=== PATIENT | female | born 1955 | race Hispanic/Latino ===

== ENCOUNTER → 2018-08-28 | Outpatient (CLI) | payer OTHER, MEDICARE ==
[~2018-08-28] MED LIST: BACL10TA PO; ESCI10TA54 PO; PANT40TA25 PO; QUET50TA55 PO
== END | disposition home or self-care (01) ==
LOC: RAH 07:59
PROVIDERS: ATTEND Family Medicine
DX: G44.59 Other complicated headache syndrome (principal); G43.909 Migraine, unspecified, not intractable, without status migrainosus; R42 Dizziness and giddiness
CPT/HCPCS: 70450

== ENCOUNTER → 2018-12-18 | Outpatient (CLI) | payer OTHER, MEDICARE | END | disposition home or self-care (01) | LOC: OIH 09:27 | PROVIDERS: ATTEND Family Medicine | DX: M25.562 Pain in left knee (principal) | CPT/HCPCS: 73562 ==

== ENCOUNTER → 2018-12-22 | Outpatient (CLI) | payer OTHER, MEDICARE | END | disposition home or self-care (01) | LOC: RAH 08:28 | PROVIDERS: ATTEND Family Medicine | DX: R10.2 Pelvic and perineal pain (principal); R10.30 Lower abdominal pain, unspecified; Z90.710 Acquired absence of both cervix and uterus | CPT/HCPCS: 76700; 76856 ==

== ENCOUNTER → 2019-03-07 | Outpatient (CLI) | payer OTHER, MEDICARE | END | disposition home or self-care (01) | LOC: RAH 09:20 | PROVIDERS: ATTEND Family Medicine | DX: Z12.31 Encounter for screening mammogram for malignant neoplasm of breast (principal) | CPT/HCPCS: 77067 ==

== ENCOUNTER → 2020-05-12 | Outpatient (CLI) | payer OTHER, MEDICARE | END | disposition home or self-care (01) | LOC: SHCH 08:30 | PROVIDERS: ATTEND Internal Medicine Cardiovascular Disease | DX: R06.02 Shortness of breath (principal) | CPT/HCPCS: 93306; 93356 ==

== ENCOUNTER → 2021-05-06 | Outpatient (CLI) | payer OTHER, MEDICARE ==
[~2021-05-06] MED LIST changes: +ESCI-8 PO; -ESCI10TA54 PO; -PANT40TA25 PO; +PANT40TA54 PO; +QUET50TA24 PO; -QUET50TA55 PO
== END | disposition home or self-care (01) ==
LOC: RAH 10:55
PROVIDERS: ATTEND Family Medicine
DX: Z12.31 Encounter for screening mammogram for malignant neoplasm of breast (principal)
CPT/HCPCS: 77067

== ENCOUNTER → 2023-06-30 | Outpatient (CLI) | payer OTHER, MEDICARE | END | disposition home or self-care (01) | LOC: RAH 09:35 | PROVIDERS: ATTEND Family Medicine | DX: Z12.31 Encounter for screening mammogram for malignant neoplasm of breast (principal) | CPT/HCPCS: 77067 ==

== ENCOUNTER 2023-07-05 09:04 | Emergency (ER) | payer OTHER, MEDICARE ==
[~2023-07-05] VITALS: Ht 160 cm; Wt 120.7 kg
[2023-07-05 09:37] LABS: BASOPHILS # (AUTO) 0.01 K/uL (0.00-0.20); BASOPHILS % (AUTO) 0.2 % (0.0-5.0); EOSINOPHILS # (AUTO) 0.14 K/uL (0.00-0.70); EOSINOPHILS % (AUTO) 2.3 % (0.0-8.0); HEMATOCRIT 43.1 % (36-48); IMMATURE GRANULOCYTE ABSOLUTE 0.02 K/uL (0-1); LYMPHOCYTES % (AUTO) 16.9 % (21.0-51.0); MEAN CORPUSCULAR HEMOGLOBIN 29.6 pg (27.0-33.0); MEAN CORPUSCULAR HGB CONC 31.6 g/dL (32.0-36.0); MEAN CORPUSCULAR VOLUME 93.9 fL (79-99); MONOCYTES # (AUTO) 0.4 K/uL (0.1-1.0); MONOCYTES % (AUTO) 6.7 % (3.0-13.0); NEUTROPHILS # (AUTO) 4.4 K/uL (1.8-7.7); NEUTROPHILS % (AUTO) 73.6 % (40.0-77.0); PLATELET COUNT (AUTO) 158 K/uL (130-400); RED BLOOD CELL COUNT(AUTO) 4.59 MIL/uL (4.00-5.50); RED CELL DISTRIBUTION WIDTH 15.1 % (11.0-15.5)
[2023-07-05 09:47] LABS: CREATININE 0.8 mg/dL (0.5-1.5); POTASSIUM 3.7 mmol/L (3.5-5.1)
[2023-07-05 09:51] LABS: ALBUMIN 2.7 g/dL (3.5-5.0); BILIRUBIN,TOTAL 0.3 mg/dL (0.2-1.0); TOTAL PROTEIN, SERUM 6.7 g/dL (6.0-8.3)
[2023-07-05 10:04] LABS: ADD UA MICROSCOPIC YES; APPEARANCE,URINE CLEAR (CLEAR); BILIRUBIN,URINE NEGATIVE (NEGATIVE); COLOR,URINE YELLOW (YELLOW); GLUCOSE, URINE (UA) NEGATIVE (NEGATIVE); KETONES,URINE NEGATIVE (NEGATIVE); LEUKOCYTE ESTERASE ,URINE NEGATIVE Leu/uL (NEGATIVE); NITRATE,URINE NEGATIVE (NEGATIVE); OCCULT BLOOD,URINE NEGATIVE (NEGATIVE); PROTEIN,URINE 10 mg/dL (NEGATIVE)
[2023-07-05 10:07] LABS: BACTERIA,URINE RARE /HPF (None Seen); MUCUS,URINE RARE LPF (None Seen); RBC,URINE 0-1 /HPF (0-1); SQUAMOUS EPITHELIAL CELL,UR FEW /HPF (0-2); WBC,URINE 0-1 /HPF (0-1)
[2023-07-05] MEDS ORDERED: MORPHINE 4 MG SYG IVP ONE ×2 (10:30→15:00)
[2023-07-05] MEDS ORDERED: LACTATED RINGERS 1000ML 1,000 ML IV ONE (10:30)
[2023-07-05] MEDS ORDERED: DIATR MEGLU/DIATRIZOATE SODIUM 30 ML BOTTLE ONE (10:43)
[2023-07-05] MEDS ORDERED: IOHEXOL 350 MG/ML 100ML INFUS..BTL IV ONE ×2 (14:10→14:12)
[2023-07-05] MEDS ORDERED: ONDANSETRON 4MG INJ IVP ONE (15:00)
[2023-07-05] MEDS ORDERED: METO-296 PO (15:06)
[2023-07-05] MEDS ORDERED: POLY17PO4 PO (15:06)
[2023-07-05 15:25] VITALS: BP 115/81; PULSE 68; RESP 18; O2SAT 98
== END 2023-07-05 15:24 | disposition home or self-care (01) ==
LOC: EDH 09:04
DX: K46.9 Unspecified abdominal hernia without obstruction or gangrene (principal); I10 Essential (primary) hypertension; Z79.899 Other long term (current) drug therapy; Z90.49 Acquired absence of other specified parts of digestive tract
CPT/HCPCS: 99285; 74177; 96374; 96375; 84484; 80053; 83690; 85025; 81001; 36415; 96376; 93005; J7120; Q9963; J2405; J2270 ×2; Q9967

== ENCOUNTER 2024-01-01 15:20 | Emergency (ER) | payer OTHER, MEDICARE ==
[~2024-01-01] VITALS: Ht 162.6 cm; Wt 119.3 kg
[~2024-01-01 15:20] MED LIST changes: +METO-296 PO; +POLY17PO4 PO
[2024-01-01] MEDS: HYDROCODONE/ACETAMINOPHEN 5/325 MG TAB PO ONE (16:28)
[2024-01-01] MEDS: KETOROLAC 30MG VIAL (30MG/ML) IVP ONE (16:29)
[2024-01-01] MEDS: SOLU-MEDROL 125MG VIAL IVP ONE (16:29)
[2024-01-01] MEDS: CYCLOBENZAPRINE HCL 10 MG TABLET PO ONE (16:29)
[2024-01-01] MEDS ORDERED: OMEP40CA21 PO (16:38)
[2024-01-01] MEDS ORDERED: CYCL-309 PO (16:38)
[2024-01-01] MEDS ORDERED: METH4TAB3 PO (16:38)
[2024-01-01] MEDS ORDERED: IBUP-2077 PO (16:38)
[2024-01-01 16:45] VITALS: BP 145/72; PULSE 68; RESP 16; O2SAT 99
== END 2024-01-01 16:51 | disposition home or self-care (01) ==
LOC: EDH 15:20
DX: G89.29 Other chronic pain (principal); M54.41 Lumbago with sciatica, right side
CPT/HCPCS: 99284; 96374; 96375; J2930; J1885

== ENCOUNTER → 2024-01-30 | Outpatient (CLI) | payer OTHER, MEDICARE ==
[~2024-01-30] MED LIST changes: +CYCL-309 PO; +IBUP-2077 PO; +METH4TAB3 PO; +OMEP40CA21 PO
== END | disposition home or self-care (01) ==
LOC: RAH 12:49
PROVIDERS: ATTEND Family Medicine
DX: S83.241A Other tear of medial meniscus, current injury, right knee, initial encounter (principal); M17.11 Unilateral primary osteoarthritis, right knee; X58.XXXA Exposure to other specified factors, initial encounter; Y93.89 Activity, other specified; Y92.89 Other specified places as the place of occurrence of the external cause; Y99.8 Other external cause status
CPT/HCPCS: 73721

== ENCOUNTER 2024-07-20 14:00 | Inpatient (IN) | payer OTHER, MEDICARE ==
--- NOTE | 2024-07-19 13:01 | EKG ---
[facility] Test Date: 2024-07-19 Test Time: 13:55:20 Pat Name: JENAE ROSAS Department: Patient ID: [id number] Room: Gender: F Residence Hall Director: [id number] : 1955 Requested By: SIMRAN FOX Order Number: [id number] Reading MD: Guillermo Smith Measurements Intervals [place] Rate: 67 P: 41 CT: 174 QRS: -56 QRSD: 109 T: 29 QT: 399 QTc: 421 Interpretive Statements Sinus rhythm Left anterior fascicular block Compared to ECG 07/05/2023 09:19:42 Left anterior fascicular block now present Myocardial infarct finding no longer present Electronically Signed On 07-19-2024 18:36:49 METEOROLOGICAL EQUIPMENT REPAIRER by Guillermo Smith Please click the below link to view image of tracing.
[2024-07-19 13:13] LABS: BASOPHILS # (AUTO) 0.02 K/uL (0.00-0.20); BASOPHILS % (AUTO) 0.3 % (0.0-5.0); EOSINOPHILS # (AUTO) 0.16 K/uL (0.00-0.70); EOSINOPHILS % (AUTO) 2.6 % (0.0-8.0); HEMATOCRIT 46.8 % (36-48); IMMATURE GRANULOCYTE ABSOLUTE 0.02 K/uL (0-1); LYMPHOCYTES # (AUTO) 1.2 K/uL (1.0-4.8); LYMPHOCYTES % (AUTO) 18.9 % (21.0-51.0); MEAN CORPUSCULAR HEMOGLOBIN 29.4 pg (27.0-33.0); MEAN CORPUSCULAR HGB CONC 31.2 g/dL (32.0-36.0); MEAN CORPUSCULAR VOLUME 94.2 fL (79-99); MONOCYTES # (AUTO) 0.5 K/uL (0.1-1.0); MONOCYTES % (AUTO) 7.9 % (3.0-13.0); NEUTROPHILS # (AUTO) 4.3 K/uL (1.8-7.7); PLATELET COUNT (AUTO) 164 K/uL (130-400); RED BLOOD CELL COUNT(AUTO) 4.97 MIL/uL (4.00-5.50); RED CELL DISTRIBUTION WIDTH 14.9 % (11.0-15.5); WHITE BLOOD COUNT (AUTO) 6.1 K/uL (4.8-10.8)
[2024-07-19 13:16] VITALS: BP 171/70; PULSE 76; RESP 18; TEMP 98
[2024-07-19 13:32] LABS: ALBUMIN 2.8 g/dL (3.5-5.0); BILIRUBIN,TOTAL 0.3 mg/dL (0.2-1.0); CREATININE 0.8 mg/dL (0.5-1.0); POTASSIUM 4.3 mmol/L (3.5-5.1); TOTAL PROTEIN, SERUM 6.6 g/dL (6.0-8.3)
[2024-07-19 13:56] LABS: INR 0.97 (0.85-1.15); PROTHROMBIN TIME 10.5 SEC (9.6-11.6)
[2024-07-19 13:57] LABS: PARTIAL THROMBOPLASTIN TIME 26.2 SEC (26.3-35.5)
[~2024-07-20] VITALS: Ht 160 cm; Wt 118.0 kg
[~2024-07-20 14:00] MED LIST changes: -BACL10TA PO; -CYCL-309 PO; +LISI5TAB21 PO; -METH4TAB3 PO; -METO-296 PO; +NEXIUM PO; -OMEP40CA21 PO; -PANT40TA54 PO; -POLY17PO4 PO; -QUET50TA24 PO
--- NOTE | 2024-07-23 08:59 | NUR ---
RE: EKG REPORTED EKG RESULTS TO DR MCMAHAN, NO NEW ORDERS RECEIVED.
[2024-07-24] VITALS (25 sets, daily range): BP systolic 18–147; BP diastolic 47–86; PULSE 72–94; RESP 13–22; TEMP 95.8–98.5; O2SAT 94–97
[2024-07-24] MEDS ORDERED: LIDOCAINE HCL 1% 20 ML VIAL ONE (07:37)
[2024-07-24] MEDS ORDERED: EPINEPHrine PF 1MG (1:1,000) 1 MG/ML AMP ONE (07:37)
[2024-07-24] MEDS ORDERED: BUPIvacaine/PF 0.25% 30ML VIAL IJ ONE (07:37)
[2024-07-24] MEDS: INDOCYANINE GREEN 25 MG VIAL IJ ONE (07:38)
[2024-07-24] MEDS ORDERED: LIDOCAINE PF 100MG/5ML (2%) SYRINGE 5ML ONE (07:48)
[2024-07-24] MEDS ORDERED: rocuRONium bROMide 10MG/1ML 5ML VL ONE ×2 (07:49→09:41)
[2024-07-24] MEDS ORDERED: FENTanyl CITRate PF 50 MCG/1 ML 2ML VIAL ONE (07:49)
[2024-07-24] MEDS ORDERED: proPOFol 10 MG/ML 20ML VIAL IV ONE (07:49)
[2024-07-24] MEDS ORDERED: SUCCINYLCHOLINE CHLORIDE 20 MG/ML 10 ML VIAL ONE (07:49)
[2024-07-24] MEDS ORDERED: MIDAZOLAM HCL 1 MG/ML 2ML VIAL ONE (07:49)
[2024-07-24] MEDS: MEROPENEM 1 GM VIAL ONE (07:56)
[2024-07-24] MEDS: LACTATED RINGERS 1000ML 1,000 ML IV ONE (07:56)
[2024-07-24] MEDS ORDERED: ePHEDrine SULFate 50 MG/ML AMPULE ONE (08:48)
[2024-07-24] MEDS ORDERED: ALBUMIN (HUMAN) 5% 250 ML IV ONE (09:16)
[2024-07-24] MEDS ORDERED: phenylEPHRINE HCL 10 MG/ML 1ML VIAL IV ONE (09:38)
[2024-07-24] MEDS: SUGAMMADEX SODIUM 200 MG/2 ML VIAL IV ONE (10:25)
[2024-07-24] MEDS ORDERED: ondanSETRON 4MG INJ ONE (10:48)
--- NOTE | 2024-07-24 10:53 | OP ---
Operative Note: DATE OF PROCEDURE: 07/24/24 SURGEON: SIMRAN FOX MD CLIENT ACCOUNT MANAGER: [None] ANESTHESIA: [General plus local] PREOPERATIVE DIAGNOSIS: [Colostomy status. Rectosigmoid stricture. Peristomal hernia.] POSTOPERATIVE DIAGNOSIS: Same SYNOPSIS: Significant amounts of intra-abdominal adhesions, this precluded a safe performance of the procedure, minimal space in the abdominal cavity due to body habitus and parastomal hernia. readily notified in regards to the procedure been aborted and the reason behind him. He understood, all questions were answered to his satisfaction. PROCEDURE: [Aborted LAR with colostomy closure. Extensive laparoscopic lysis of adhesions over 1 hour and 20 minutes.] ESTIMATED BLOOD LOSS: [20 mL] INDICATIONS: [This is a 69-year-old female known to the clinic with a history of rectal cancer underwent an LAR over five years ago, subsequently she presented with a complication and a stricture and underwent and laparotomy with colostomy creation. She developed a large parastomal hernia that has been tried to repair twice with recurrences. She was seen in the office and after workup the discussion was done in regards to possibly closed in the stoma and repair in the parastomal hernia. We clearly describe that that might not be possible depending on the findings during the surgery. We discussed this in detail with the patient and after all questions were answered to her satisfaction, she granted consent.] DESCRIPTION OF PROCEDURE: The patient was identified in the holding area transferred to the OR placed supine on the operative table. Venodyne boots were placed for DVT prophylaxis. IV antibiotics were given within the hour of skin incision. After general anesthesia was obtained, time-out conducted, she was placed in lithotomy position with great care taken to pad all pressure points. Abdomen was prepped and draped in the usual sterile fashion. We gained access to the abdomen via Veress needle in the left upper quadrant, and under direct vision an 8 mm robotic port was placed. Upon placement of the camera was immediately apparent that there was significant amount of adhesions. We were able to place a 2nd 8 mm port and under took some lysis of adhesions laparoscopically, this was done in order to allow the placement of the two other ports needed for the procedure and the assist port. After a 3rd port was placed extensive lysis of adhesion ensue, over an hour and 20 minutes, unusual for this type of procedure. All the trocars were placed the patient placed in Trendelenburg position and it was just not possible to build the space, I lysed all the dense adhesions she had. We try to gain some more space in the abdomen and pelvis with different position on postural changes but due to her body habitus, the presence of the large parastomal hernia, and a significant amount of retroperitoneal fat, this was just not possible. After extensive lysis of adhesion and the fact that no progress was able to be made towards the end goal of performing the LAR and closed in the stoma, the decision was made to abort the procedure. Trocars were removed under direct vision, pneumoperitoneum had been deflated, 4-0 Monocryl used to close the skin followed by Dermabond. Colostomy bag was placed, counts were done and correct. I was present and scrubbed for the entire case. SIMRAN SANABRIA MD Jul 24, 2024 10:53
[2024-07-24] MEDS: MEPERIDINE-PF 25 MG/ML SYG ONE ×2 (11:12→11:30)
[2024-07-24] MEDS: FENTanyl CITRate PF 50 MCG/1 ML 2ML VIAL ONE (11:27)
--- NOTE | 2024-07-24 11:40 | NUR ---
REPORT RECEIVED FROM RORY WESLEY AT PACU.
--- NOTE | 2024-07-24 12:12 | NUR ---
PATIENT ARRIVED TO UNIT VIA BED BY RORY WESLEY. IN TO ASSESS PATIENT WITH Malik MENDIETA RN.
[2024-07-24] MEDS: morPHINE 4 MG SYG IV PRN (14:02)
--- NOTE | 2024-07-24 14:50 | NUR ---
CALLED ANSWERING SERVICE, PAGING DR GARDUNO TO NOTIFY OF CONSULT.
[2024-07-24] MEDS: D5W-1/2 NS/20MEQ KCL 1,000 ML IV SCH (15:06)
[2024-07-24] MEDS: HEParin 5,000 UNIT VIAL SQ SCH ×2 (15:07→23:05)
[2024-07-24] MEDS: HYDROcodone/APAP 5/325 1 TAB TABLET PO PRN (15:26)
--- NOTE | 2024-07-24 16:42 | CONS ---
[facility] CONSULTATION NOTE Date of Service: Jul 24, 2024 Reason for Consultation: [ COMANAGEMENT ] Requesting Physician: [DR FENG ] HISTORY OF PRESENT ILLNESS: [Patient is 69 years old female who came to hospital for elective aborted ER with colostomy closure and extensive laparoscopy lysis of adhesion with . Pt has a hx pf rectal cancer underwent an LAR over five years ago, subsequently she presented with a complication and a stricture and underwent and laparotomy with colostomy creation. She developed a large parastomal hernia that has been tried to repair twice with recurrences. She was seen in the office and after workup the discussion was done in regards to possibly closed in the stoma and repair in the parastomal hernia. Patient is s/p surgery comfortably lying in room 113. Patient denies any shortness of breath, chest pain, nausea, vomiting or any other discomfort other pain where the procedure was performed. Most recent vital signs temperature 97.5 pulse 79 respiration 18 blood pressure 144/73 patient is on 3 L nasal cannula satting 99% WBC 6.1 hemoglobin 14.6 hematocrit 46.8 platelets 164. Sodium 140 potassium 4.3 CO2 36 BUN 13 creatinine 0.8 GFR 80 calcium 8.8 bilirubin 0.3 AST 24 ALT 23. We will continue monitoring patient in the meantime. A.m. labs. ] REVIEW OF SYSTEMS CONSTITUTIONAL: Denies fevers, chills, or night sweats. No unintentional weight loss reported. NEUROLOGICAL: Denies headache, amaurosis fugax, motor weakness, sensory deficit, vertigo/spinning sensation, gait abnormalities, or tremors. ENT: No hearing loss, otalgia, otorrhea, rhinitis, rhinorrhea, hoarseness, or sore throat. CARDIOVASCULAR: Denies any exertional angina, dyspnea on exertion, orthopnea, paroxysmal nocturnal dyspnea, palpitations, life-threatening arrhythmias, claudication. PULMONARY: Denies any shortness of breath, cough, phlegm/sputum, hemoptysis, pleuritic chest pain. SLEEP: Denies morning headaches, daytime somnolence or napping. Denies difficulty falling asleep, staying asleep, waking from sleep. Denies knowledge of snoring. GASTROINTESTINAL: Denies any type of dysphagia to either liquids or solids. Denies nausea, vomiting, pyrosis, early satiety, abdominal pain, diarrhea, constipation, or changes in stool consistency or caliber. Denies coffee-ground emesis, hematemesis, hematochezia, or melanotic stools. GENITOURINARY: Denies frequency, urgency, nocturia, hematuria or incontinence (Storage/Irritative symptoms.) Low urinary stream, straining to void, urinary intermittency or hesitancy, splitting of the voiding stream, terminal dribbling. ENDOCRINOLOGIC: Denies polyuria, polydipsia, polyphagia or heat/cold intolerances. HEMATOLOGIC: Denies thrombophilia/previous clots, or coagulopathy/bleeding disorders. ONCOLOGIC: Denies personal history of malignancy. DERMATOLOGIC: Denies rashes or pruritus. PSYCHIATRIC: Denies any suicidal or homicidal ideation. Denies hallucinations. PAST MEDICAL HISTORY: [ Hypertension, hyperlipidemia, morbid obesity, rectal ca, parastomal hernia] PAST SURGICAL HISTORY: [Aborted LAR with colostomy closure extensive laparoscopic lysis of adhesion ] PAST SOCIAL HISTORY: [ Denies smoking. Denies alcohol illicit. Denies drug illicit] Coded Allergies: No Known Drug Allergies (Verified Allergy, Unknown, 07/22/17) PHYSICAL EXAM GENERAL APPEARANCE: The patient is awake, alert, and oriented, in no acute c ardiopulmonary distress. NEUROLOGICAL: Cranial nerves II-XII grossly intact. Motor is 5/5 in bilateral upper and lower extremities proximal to distal. No sensory deficits. HEENT: Face is symmetric. Pupils are equal and reactive. Extraocular movements are intact. NECK: Supple. No JVD. No thyromegaly. No submental, submandibular, pre- /postauricular, occipital or supraclavicular lymphadenopathy. CHEST: Normal chest expansion. No Telemetry. LUNGS: Absence of any rales, rhonchi or any wheezing. CARDIOVASCULAR: Regular. S1 and S2 normal. No appreciable rubs, murmurs or gallops. ABDOMEN: Soft, nontender, and nondistended. There is no rebound, voluntary guarding, or rigidity. : Deferred. No Zuleta. EXTREMITIES: Non-edematous and not cyanotic. No clubbing. Good capillary refill. SKIN: No skin breakdown. Vital Sign (Last 24 Hours) 07/24/24 07/24/24 11:20 12:00 Temp 97.5 Pulse 79 Resp 18 B/P (MAP) 144/73 Pulse Ox 99 O2 Delivery Nasal Cannula O2 Flow Rate 3.0 FiO2 100 LABS: DIAGNOSTICS / RADIOLOGY: [ ] ASSESSMENT: [ hx rectal cancer s/p LAR 5 yrs ago hx large parastomal hernia s/p Aborted LAR with colostomy closure. Extensive laparoscopic lysis of adhesions Uncontrolled hypertension POA ] PLAN: [ Admit to: Medical-surgical floor NEURO: Minimize central acting medications as possible. Fall Precautions. Well lighted room through the day and minimize interruptions through the night to prevent acute delirium. PULMONARY: Supplemental 02 as needed BiPAP as necessary, for respiratory distress Titrate Fio2 to keep Spo2 > or = 90% DuoNebs and CPT as needed IS hourly while awake for pulmonary hygiene Out of bed to chair as tolerated VAP Bundle Maintain aspiration precautions at all times CARDIOVASCULAR: Follow hemodynamics. Vital signs per facility protocol GI & NUTRITION: Continue nutritional support Aspirations precautions Prokinetic agents and laxatives as needed KIDNEYS & ELECTROLYTES: Strict monitoring of intake and output Daily weights Avoid nephrotoxic agents Monitor electrolytes and replace as needed Goal urine output of 30mL/hr or 0.5mL/kg/hr Medications to be dosed according to renal function. Avoid contrast if possible ENDOCRINE: Maintain blood glucose between 100-180 at all times. Insulin sliding scale for blood glucose management Hypoglycemia and hyperglycemia protocol in place INFECTIOUS DISEASE: Trend temperature, WBC and procalcitonin level Follow cultures, deescalate antibiotics as soon as possible. Panculture if new onset fever HEMATOLOGY & COAGULATION: Monitor H&H. Keep Hgb > 7 Transfuse 1 unit of PRBC for Hgb < 7 Transfuse 1 pack of platelets of platelets < 20, 000 Watch for any signs and symptoms of bleeding SKIN: Pressure ulcer prevention per facility protocol Specialty mattress as needed Treatment plan discussed with patient and family at the bedside Medications to be reconciled once obtained by patient and/or family and available to be reconciled in computer p.r.n. medication for pain nausea and vomiting Questions were answered We will continue to monitor the patient closely Hardware Supplies Sales Representative for disposition Rehab: PT/OT GI: PPI DVT: SCD's Code Status: Full Resuscitation Disposition: TBD Prognosis: Guarded ] ADVANCED CARE PLANNING 1. Which of the following were discussed? Hospice Care - Yes / No Therapeutic options - Yes / No Advance Directives - Yes / No Other discussions - 2. Discussed with who? Patient 3. Voluntary nature of this service was explained to the patient? Yes / No 4. Amount of time spent - ___ more than 35 minutes ____ 5. Reviewed by Physician? (if this service was performed by NPP) Yes / No ATTESTATION BY PHYSICIAN I have seen and examined the patient. I reviewed the documentation, medical decision making, and treatment plan as noted by the mid-level provider above. I agree with the findings and plan of care. Carleen Torrse MD, KATARZYNA B DIRECTOR STYLE Jul 24, 2024 16:42
[2024-07-25 03:08] VITALS: BP 122/72; PULSE 93; RESP 20; TEMP 98.1
[2024-07-25] MEDS: ondanSETRON 4MG INJ IVP PRN (03:08)
--- NOTE | 2024-07-25 03:08 | NUR ---
PT. MEDICATED FOR PAIN AND NAUSEA, SEE MAR. ALSO REPOSITIONED.
--- NOTE | 2024-07-25 04:04 | NUR ---
PT. RESTING QUIETLY, DENIED PAIN AND NAUSEA.
[2024-07-25 06:42] LABS: BASOPHILS # (AUTO) 0.01 K/uL (0.00-0.20); BASOPHILS % (AUTO) 0.1 % (0.0-5.0); HEMATOCRIT 44.5 % (36-48); IMMATURE GRANULOCYTE ABSOLUTE 0.03 K/uL (0-1); LYMPHOCYTES # (AUTO) 0.5 K/uL (1.0-4.8); MEAN CORPUSCULAR HEMOGLOBIN 29.6 pg (27.0-33.0); MEAN CORPUSCULAR HGB CONC 31.9 g/dL (32.0-36.0); MEAN CORPUSCULAR VOLUME 92.9 fL (79-99); MONOCYTES # (AUTO) 0.9 K/uL (0.1-1.0); MONOCYTES % (AUTO) 8.4 % (3.0-13.0); NEUTROPHILS % (AUTO) 86.2 % (40.0-77.0); PLATELET COUNT (AUTO) 170 K/uL (130-400); RED BLOOD CELL COUNT(AUTO) 4.79 MIL/uL (4.00-5.50); RED CELL DISTRIBUTION WIDTH 14.7 % (11.0-15.5); WHITE BLOOD COUNT (AUTO) 10.5 K/uL (4.8-10.8)
[2024-07-25 06:58] LABS: ALBUMIN 2.3 g/dL (3.5-5.0); BILIRUBIN,TOTAL 0.7 mg/dL (0.2-1.0); MAGNESIUM 1.8 mg/dL (1.80-2.40); POTASSIUM 5.2 mmol/L (3.5-5.1); TOTAL PROTEIN, SERUM 5.8 g/dL (6.0-8.3)
[2024-07-25 07:40] VITALS: BP 116/70; PULSE 101; RESP 20; TEMP 98.3; O2SAT 96
[2024-07-25 10:00] LABS: APPEARANCE,URINE CLEAR (CLEAR); BILIRUBIN,URINE NEGATIVE (NEGATIVE); COLOR,URINE YELLOW (YELLOW); GLUCOSE, URINE (UA) 50 mg/dL (NEGATIVE); KETONES,URINE 5 mg/dL (NEGATIVE); LEUKOCYTE ESTERASE ,URINE 25 Leu/uL (NEGATIVE); NITRATE,URINE NEGATIVE (NEGATIVE); OCCULT BLOOD,URINE NEGATIVE (NEGATIVE); PH,URINE 5.5 (5.0-8.0); PROTEIN,URINE 20 mg/dL (NEGATIVE); UROBILINOGEN,URINE 0.2 mg/dL (0.2-1.0)
[2024-07-25 10:13] LABS: ADD UA MICROSCOPIC YES
[2024-07-25] MEDS: kayEXALate 15GM/60ML PO ONE (10:27)
[2024-07-25 10:33] LABS: HYALINE CASTS, URINE 26-50 /LPF (0-1 /LPF); MUCUS,URINE FEW LPF (None Seen); SQUAMOUS EPITHELIAL CELL,UR RARE /HPF (0-2)
[2024-07-25 11:27] VITALS: BP 119/75; PULSE 114; RESP 20; TEMP 97.9
--- NOTE | 2024-07-25 12:35 | PN ---
[facility] PROGRESS NOTE Date of Service: Jul 25, 2024 Time of Service: 12:[address] Guido SUBJECTIVE: [ Patient is 69 years old female who came to hospital for elective aborted ER with colostomy closure and extensive laparoscopy lysis of adhesion with . Pt has a hx pf rectal cancer underwent an LAR over five years ago, subsequently she presented with a complication and a stricture and underwent and laparotomy with colostomy creation. She developed a large parastomal hernia that has been tried to repair twice with recurrences. She was seen in the office and after workup the discussion was done in regards to possibly closed in the stoma and repair in the parastomal hernia. Patient is s/p surgery comfortably lying in room 113. Patient denies any shortness of breath, chest pain, nausea, vomiting or any other discomfort other pain where the procedure was performed. Most recent vital signs temperature 97.5 pulse 79 respiration 18 blood pressure 144/73 patient is on 3 L nasal cannula satting 99% WBC 6.1 hemoglobin 14.6 hematocrit 46.8 platelets 164. Sodium 140 potassium 4.3 CO2 36 BUN 13 creatinine 0.8 GFR 80 calcium 8.8 bilirubin 0.3 AST 24 ALT 23. We will continue monitoring patient in the meantime. A.m. labs. 07/25/24 patient was seen by nurse practitioner and physician 122 comfortably lying in the bed. MANUFACTURER AGENT to one patient was sitting 99 importance of weaning off the O2. Patient continues to have a gray per surgeon. UA was ordered and came back positive for leucocytosis. We will place pt on Rocephin 2 g daily. Also patient's potassium today was 5.2 and patient will receive one dose of Kayexalate. We will continue to monitor patient in the meantime, a.m. labs. Patient denies any shortness of breath, chest pain, nausea, vomiting] REVIEW OF SYSTEMS CONSTITUTIONAL: Denies fevers, chills, or night sweats. No unintentional weight loss reported. NEUROLOGICAL: Denies headache, amaurosis fugax, motor weakness, sensory deficit, vertigo/spinning sensation, gait abnormalities, or tremors. ENT: No hearing loss, otalgia, otorrhea, rhinitis, rhinorrhea, hoarseness, or sore throat. CARDIOVASCULAR: Denies any exertional angina, dyspnea on exertion, orthopnea, paroxysmal nocturnal dyspnea, palpitations, life-threatening arrhythmias, claudication. PULMONARY: Denies any shortness of breath, cough, phlegm/sputum, hemoptysis, pleuritic chest pain. SLEEP: Denies morning headaches, daytime somnolence or napping. Denies difficulty falling asleep, staying asleep, waking from sleep. Denies knowledge of snoring. GASTROINTESTINAL: Denies any type of dysphagia to either liquids or solids. Denies nausea, vomiting, pyrosis, early satiety, abdominal pain, diarrhea, constipation, or changes in stool consistency or caliber. Denies coffee-ground emesis, hematemesis, hematochezia, or melanotic stools. GENITOURINARY: Denies frequency, urgency, nocturia, hematuria or incontinence (Storage/Irritative symptoms.) Low urinary stream, straining to void, urinary intermittency or hesitancy, splitting of the voiding stream, terminal dribbling. ENDOCRINOLOGIC: Denies polyuria, polydipsia, polyphagia or heat/cold intolerances. HEMATOLOGIC: Denies thrombophilia/previous clots, or coagulopathy/bleeding disorders. ONCOLOGIC: Denies personal history of malignancy. DERMATOLOGIC: Denies rashes or pruritus. PSYCHIATRIC: Denies any suicidal or homicidal ideation. Denies hallucinations. PHYSICAL EXAM GENERAL APPEARANCE: The patient is awake, alert, and oriented, in no acute cardiopulmonary distress. NEUROLOGICAL: Cranial nerves II-XII grossly intact. Motor is 5/5 in bilateral upper and lower extremities proximal to distal. No sensory deficits. HEENT: Face is symmetric. Pupils are equal and reactive. Extraocular movements are intact. NECK: Supple. No JVD. No thyromegaly. No submental, submandibular, pre- /postauricular, occipital or supraclavicular lymphadenopathy. CHEST: Normal chest expansion. No Telemetry. LUNGS: Absence of any rales, rhonchi or any wheezing. CARDIOVASCULAR: Regular. S1 and S2 normal. No appreciable rubs, murmurs or gallops. ABDOMEN: Soft, nontender, and nondistended. There is no rebound, voluntary guarding, or rigidity. : Deferred. No Gray. EXTREMITIES: Non-edematous and not cyanotic. No clubbing. Good capillary refill. SKIN: No skin breakdown. Vital Signs (last 8hr) Date Time Temp Pulse Resp B/P (MAP) Pulse Ox O2 Delivery O2 Flow Rate FiO2 07/25/24 11:27 97.9 114 20 119/75 93 Nasal Cannula 1.0 22 07/25/24 07:40 96 Nasal Cannula* 2 28 07/25/24 07:40 98.2 101 20 116/70 96 Nasal Cannula 2.0 LABS: Laboratory: Test 07/25/24 09:50 07/25/24 06:31 Range/Units Urine Color YELLOW YELLOW Urine Appearance CLEAR CLEAR Urine pH 5.5 5.0-8.0 Urine Specific [place] 1.024 1.001-1.031 Urine Protein 20 H NEGATIVE mg/dL Urine Glucose (UA) 50 H NEGATIVE mg/dL Urine Ketones 5 H NEGATIVE mg/dL Urine Occult Blood NEGATIVE NEGATIVE Urine Nitrate NEGATIVE NEGATIVE Urine Bilirubin NEGATIVE NEGATIVE mg/dL Urine Urobilinogen 0.2 0.2-1.0 mg/dL Urine Leukocyte Esterase 25 H NEGATIVE Santos/uL Urine RBC 2-5 H 0-1 /HPF Urine WBC 6-10 H 0-1 /HPF Urine Squamous Epithelial Cells RARE 0-2 /HPF Urine Bacteria None None Seen /HPF Urine Hyaline Casts 26-50 H 0-1 /LPF /LPF White Blood Count 10.5 4.8-10.8 K/uL Red Blood Count 4.79 4.00-5.50 MIL/uL Hemoglobin 14.2 12.0-16.0 g/dL Hematocrit 44.5 36-48 % Mean Corpuscular Volume 92.9 79-99 fL Mean Corpuscular Hemoglobin 29.6 27.0-33.0 pg Mean Corpuscular Hemoglobin Concent 31.9 L 32.0-36.0 g/dL Red Cell Distribution Width 14.7 11.0-15.5 % Platelet Count 170 130-400 K/uL Mean Platelet Volume 10.3 7.5-10.5 fL Immature Granulocyte % (Auto) 0.3 0-1 % Neutrophils (%) (Auto) 86.2 H 40.0-77.0 % Lymphocytes (%) (Auto) 5.0 L 21.0-51.0 % Monocytes (%) (Auto) 8.4 3.0-13.0 % Eosinophils (%) (Auto) 0.0 0.0-8.0 % Basophils (%) (Auto) 0.1 0.0-5.0 % Neutrophils # (Auto) 9.0 H 1.8-7.7 K/uL Lymphocytes # (Auto) 0.5 L 1.0-4.8 K/uL Monocytes # (Auto) 0.9 0.1-1.0 K/uL Eosinophils # (Auto) 0.00 0.00-0.70 K/uL Basophils # (Auto) 0.01 0.00-0.20 K/uL Absolute Immature Granulocyte (auto 0.03 0-1 K/uL Nucleated Red Blood Cells 0.0 0.0-0.19 % White Cell Morphology Comment See comments Sodium Level 138 136-145 mmol/L Potassium Level 5.2 H 3.5-5.1 mmol/L Chloride Level 104 101-111 mmol/L Carbon Dioxide Level 30 21-32 mmol/L Blood Urea Nitrogen 15 7-18 mg/dL Creatinine 1.0 0.5-1.0 mg/dL Glomerular Filtration Rate Calc 61 >90 mL/min Random Glucose 177 H 70-105 mg/dL Total Calcium 8.2 L 8.5-10.1 mg/dL Magnesium Level 1.80 1.80-2.40 mg/dL Total Bilirubin 0.7 0.2-1.0 mg/dL Aspartate Amino Transf (AST/SGOT) 25 10-37 U/L Alanine Aminotransferase (ALT/SGPT) 21 12-78 U/L Alkaline Phosphatase 83 50-136 U/L Total Protein 5.8 L 6.0-8.3 g/dL Albumin 2.3 L 3.5-5.0 g/dL Current Medications Medications (Trade) Dose Ordered Sig/Anastasia Route PRN Reason Start Time Stop Time Status Last Admin Dose Admin Acetaminophen/ Hydrocodone Bitart (NORco 5/325MG) 1 tab Q4H PRN PO MODERATE PAIN (4-6) 07/24/24 11:00 07/29/24 10:59 07/25/24 00:07 1 TAB Heparin Sodium (Porcine) (HEParin 5,000 UNIT VIAL) 5,000 unit Q8H SQ 07/24/24 23:00 08/23/24 13:59 07/25/24 06:52 5,000 UNIT Heparin Sodium (Porcine) (HEParin 5,000 UNIT VIAL) 5,000 unit TID SQ 07/24/24 14:00 07/24/24 20:20 DC 07/24/24 15:07 5,000 UNIT Morphine Sulfate (morPHINE 4MG SYG) 4 mg Q3H PRN IV SEVERE PAIN (7-10) 07/24/24 11:00 07/31/24 10:59 07/25/24 10:57 4 MG Ondansetron HCl (zoFRAN 4MG INJ) 4 mg Q4H PRN IVP NAUSEA 07/24/24 11:00 08/23/24 10:59 07/25/24 10:54 4 MG Potassium Chloride/Dextrose/ Sod Cl 1,000 ml @ 75 mls/hr [id number] IV 07/24/24 11:00 08/23/24 10:59 07/25/24 04:04 75 MLS/HR DIAGNOSTICS / RADIOLOGY: [ ] ASSESSMENT: [ hx rectal cancer s/p LAR 5 yrs ago hx large parastomal hernia s/p Aborted LAR with colostomy closure. Extensive laparoscopic lysis of adhesions Uncontrolled hypertension POA ] PLAN: [ Admit to: Medical-surgical floor kexelate one dose abx Rocephin for positive urinalysis NEURO: Minimize central acting medications as possible. Fall Precautions. Well lighted room through the day and minimize interruptions through the night to prevent acute delirium. PULMONARY: Supplemental 02 as needed BiPAP as necessary, for respiratory distress Titrate Fio2 to keep Spo2 > or = 90% DuoNebs and CPT as needed IS hourly while awake for pulmonary hygiene Out of bed to chair as tolerated VAP Bundle Maintain aspiration precautions at all times CARDIOVASCULAR: Follow hemodynamics. Vital signs per facility protocol GI & NUTRITION: Continue nutritional support Aspirations precautions Prokinetic agents and laxatives as needed KIDNEYS & ELECTROLYTES: Strict monitoring of intake and output Daily weights Avoid nephrotoxic agents Monitor electrolytes and replace as needed Goal urine output of 30mL/hr or 0.5mL/kg/hr Medications to be dosed according to renal function. Avoid contrast if possible ENDOCRINE: Maintain blood glucose between 100-180 at all times. Insulin sliding scale for blood glucose management Hypoglycemia and hyperglycemia protocol in place INFECTIOUS DISEASE: Trend temperature, WBC and procalcitonin level Follow cultures, deescalate antibiotics as soon as possible. Panculture if new onset fever HEMATOLOGY & COAGULATION: Monitor H&H. Keep Hgb > 7 Transfuse 1 unit of PRBC for Hgb < 7 Transfuse 1 pack of platelets of platelets < 20, 000 Watch for any signs and symptoms of bleeding SKIN: Pressure ulcer prevention per facility protocol Specialty mattress as needed Treatment plan discussed with patient and family at the bedside Medications to be reconciled once obtained by patient and/or family and available to be reconciled in computer p.r.n. medication for pain nausea and vomiting Questions were answered We will continue to monitor the patient closely Server Manager for disposition Rehab: PT/OT GI: PPI DVT: SCD's Code Status: Full Resuscitation Disposition: TBD Prognosis: Guarded ] ATTESTATION BY PHYSICIAN I have seen and examined the patient. I reviewed the documentation, medical decision making, and treatment plan as noted by the mid-level provider above. I agree with the findings and plan of care. TALIB GUIDO MD, KATARZYNA B [facility] Jul 25, 2024 12:35
[2024-07-25] MEDS: CEFTRIAXONE 2GM VIAL IVPB SCH (13:10)
[2024-07-25 15:57] VITALS: BP 123/69; PULSE 125; RESP 20; TEMP 99
--- NOTE | 2024-07-25 17:41 | PN ---
[facility] PROGRESS NOTE Date of Visit: Jul 25, 2024 Time of Visit: 17:31 Events / Notes: [ 69 YO patient with hx of rectal cancer s/p LAR with DI on 05/06/2012 with subsequent closure of ileostomy. 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 She underwent a partial colectomy with end colostomy and parastomal hernia repair in 07/07/21. She then had parastomal hernia recur and thus present to clinic for repair of parastomal hernia and had wanted to have colostomy reversed. She underwent a robotic lysis of adhesions but parastomal hernia repair and LAR were aborted d/t extensive amount of adhesions and large body habitus making it difficult to proceed with procedure. The patient was found resting in HF. Respirations unlabored. She was on O2 at 2l/min via nc. Abdomen is soft and tender. Colostomy in place with no output during exam. 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 Zuleta cath draining clear yellow urine via gravity. She has tolerated full liquid diet. POC discussed with patient and family and encouraged ambulation. Zuleta is to be removed today and PT consulted to assist patient to ambulate. Patient and family verbalized understanding. ] Review of Systems: CONSTITUTIONAL: No malaise or change in sensation of wellbeing. ENMT: No rhinorrhea, otorrhea, sinus pain, ear ache. CARDIOVASCULAR: No angina, palpitations, RESPIRATORY: No SOB. GASTROINTESTINAL: No abdominal pain, nausea, vomiting, diarrhea, hematemesis, melena or change in the patient's habitual bowel movements consistency/number. GENITOURINARY: No dysuria, hematuria or change in bladder continence. MUSCULOSKELETAL: No new muscle pain or decrease in muscular strength. No new joint swelling, redness or tenderness. SKIN: No new rash. Physical Exam: GEN: Awake, alert, oriented in person, time and place, and in no acute distress. HEENT: No rhinorrhea. Oral pharyngeal mucosa is pink, moist and within normal limits. CHEST: Inspection, Respirations unlabored. O2 at 2l/min via NC; CARDIAC: PMI is within normal limits. Heart sounds are regular. Normal S1, S2. No gallop or murmur. ABD: Soft, non-tender and not distended. No peritoneal signs on palpation. No organomegaly. Colostomy with no output at the moment. Incisions D&I maicol with dermabond. Dressings dry. EXT: No cyanosis or clubbing. No edema. SKIN: Intact. No rashes. JOINTS: No evidence of synovitis or acute arthritis. NEURO: Alert and oriented to name, place and person. Cranial nerve examination is unremarkable. No focal motor deficits. Normal speech. Strength is normal. Vital Signs (last 8hr) Date Time Temp Pulse Resp B/P (MAP) Pulse Ox O2 Delivery O2 Flow Rate FiO2 07/25/24 15:57 99.0 125 20 123/69 93 Nasal Cannula 1.0 22 07/25/24 11:27 97.9 114 20 119/75 93 Nasal Cannula 1.0 22 Laboratory: [ ] Laboratory: Test 07/25/24 09:50 07/25/24 06:31 Range/Units Urine Color YELLOW YELLOW Urine Appearance CLEAR CLEAR Urine pH 5.5 5.0-8.0 Urine Specific [place] 1.024 1.001-1.031 Urine Protein 20 H NEGATIVE mg/dL Urine Glucose (UA) 50 H NEGATIVE mg/dL Urine Ketones 5 H NEGATIVE mg/dL Urine Occult Blood NEGATIVE NEGATIVE Urine Nitrate NEGATIVE NEGATIVE Urine Bilirubin NEGATIVE NEGATIVE mg/dL Urine Urobilinogen 0.2 0.2-1.0 mg/dL Urine Leukocyte Esterase 25 H NEGATIVE Santos/uL Urine RBC 2-5 H 0-1 /HPF Urine WBC 6-10 H 0-1 /HPF Urine Squamous Epithelial Cells RARE 0-2 /HPF Urine Bacteria None None Seen /HPF Urine Hyaline Casts 26-50 H 0-1 /LPF /LPF White Blood Count 10.5 4.8-10.8 K/uL Red Blood Count 4.79 4.00-5.50 MIL/uL Hemoglobin 14.2 12.0-16.0 g/dL Hematocrit 44.5 36-48 % Mean Corpuscular Volume 92.9 79-99 fL Mean Corpuscular Hemoglobin 29.6 27.0-33.0 pg Mean Corpuscular Hemoglobin Concent 31.9 L 32.0-36.0 g/dL Red Cell Distribution Width 14.7 11.0-15.5 % Platelet Count 170 130-400 K/uL Mean Platelet Volume 10.3 7.5-10.5 fL Immature Granulocyte % (Auto) 0.3 0-1 % Neutrophils (%) (Auto) 86.2 H 40.0-77.0 % Lymphocytes (%) (Auto) 5.0 L 21.0-51.0 % Monocytes (%) (Auto) 8.4 3.0-13.0 % Eosinophils (%) (Auto) 0.0 0.0-8.0 % Basophils (%) (Auto) 0.1 0.0-5.0 % Neutrophils # (Auto) 9.0 H 1.8-7.7 K/uL Lymphocytes # (Auto) 0.5 L 1.0-4.8 K/uL Monocytes # (Auto) 0.9 0.1-1.0 K/uL Eosinophils # (Auto) 0.00 0.00-0.70 K/uL Basophils # (Auto) 0.01 0.00-0.20 K/uL Absolute Immature Granulocyte (auto 0.03 0-1 K/uL Nucleated Red Blood Cells 0.0 0.0-0.19 % White Cell Morphology Comment See comments Sodium Level 138 136-145 mmol/L Potassium Level 5.2 H 3.5-5.1 mmol/L Chloride Level 104 101-111 mmol/L Carbon Dioxide Level 30 21-32 mmol/L Blood Urea Nitrogen 15 7-18 mg/dL Creatinine 1.0 0.5-1.0 mg/dL Glomerular Filtration Rate Calc 61 >90 mL/min Random Glucose 177 H 70-105 mg/dL Total Calcium 8.2 L 8.5-10.1 mg/dL Magnesium Level 1.80 1.80-2.40 mg/dL Total Bilirubin 0.7 0.2-1.0 mg/dL Aspartate Amino Transf (AST/SGOT) 25 10-37 U/L Alanine Aminotransferase (ALT/SGPT) 21 12-78 U/L Alkaline Phosphatase 83 50-136 U/L Total Protein 5.8 L 6.0-8.3 g/dL Albumin 2.3 L 3.5-5.0 g/dL Current Medications Medications (Trade) Dose Ordered Sig/Anastasia Route PRN Reason Start Time Stop Time Status Last Admin Dose Admin Acetaminophen/ Hydrocodone Bitart (NORco 5/325MG) 1 tab Q4H PRN PO MODERATE PAIN (4-6) 07/24/24 11:00 07/29/24 10:59 07/25/24 00:07 1 TAB Ceftriaxone Sodium (Rocephin 2gm Inj) 2 gm Q24H IVPB 07/25/24 13:00 08/04/24 12:59 07/25/24 13:10 2 GM Heparin Sodium (Porcine) (HEParin 5,000 UNIT VIAL) 5,000 unit Q8H SQ 07/24/24 23:00 08/23/24 13:59 07/25/24 16:08 5,000 UNIT Heparin Sodium (Porcine) (HEParin 5,000 UNIT VIAL) 5,000 unit TID SQ 07/24/24 14:00 07/24/24 20:20 DC 07/24/24 15:07 5,000 UNIT Morphine Sulfate (morPHINE 4MG SYG) 4 mg Q3H PRN IV SEVERE PAIN (7-10) 07/24/24 11:00 07/31/24 10:59 07/25/24 17:16 4 MG Ondansetron HCl (zoFRAN 4MG INJ) 4 mg Q4H PRN IVP NAUSEA 07/24/24 11:00 08/23/24 10:59 07/25/24 17:15 4 MG Potassium Chloride/Dextrose/ Sod Cl 1,000 ml @ 75 mls/hr [id number] IV 07/24/24 11:00 08/23/24 10:59 07/25/24 04:04 75 MLS/HR Assessment: [colostomy status parastomal hernia ] Plan: [Regular diet Encourage ambulation--PT consulted Encourage I/S exercises Pain meds as needed Antiemetics prn Plan for disposition in the next 24-48 hours Please call with questions, concerns, and change in clinical status. Appreciate hospitalist's assistance in our patient care. ] NEIDA DO NP Jul 25, 2024 17:41
[2024-07-25 20:00] VITALS: BP 96/57; PULSE 120; RESP 22; TEMP 99.3; O2SAT 93
--- NOTE | 2024-07-25 20:00 | NUR ---
Patient resting in bed. Patient voices deep dissatisfaction with outcome of procedure and states she feels very depressed and doesn't want any family around. Patient states she just wants to "get out of here and go home". RN expressed empathy and reiterated importance of recovering from procedure and attempting to prevent any further complications. Patient verbalizes understanding and states she know why she has to stay but she is very upset. Patient assisted with repositioning in bed and currently in semi fowlers position with pillows placed for patients comfort.
--- NOTE | 2024-07-25 21:54 | NUR ---
RN placed call to hospitalist to notify of vital sign changes. RN spoke with answering service. Staff states call back will be received from Mary COPELAND.
--- NOTE | 2024-07-25 22:35 | NUR ---
Call back received from Mary COPELAND. RN notified FARE REGISTER REPAIRER of systolic BP in 90s, tachycardia, O2 saturation 93%, and mildly elevated oral temperatures. FARE REGISTER REPAIRER verbalized understanding. Orders received to administer 500 mL NS bolus then continue NS at 125 ml/hr, stop rocephin and start zosyn, urinalysis, blood cultures VENESSA, and lactic acid in AM. TORB and confirmed.
[2024-07-25] MEDS: 0.9%NACL 1000ML 1,000 ML IV SCH (22:58)
[2024-07-25] MEDS: 0.9% NACL 500ML IV.SOLN 500 ML IV SCH (22:59)
[2024-07-25 23:31] LABS: ADD UA MICROSCOPIC YES; APPEARANCE,URINE CLOUDY (CLEAR); BILIRUBIN,URINE 0.5 mg/dL (NEGATIVE); COLOR,URINE DARK-YELLOW (YELLOW); GLUCOSE, URINE (UA) NEGATIVE (NEGATIVE); KETONES,URINE 5 mg/dL (NEGATIVE); LEUKOCYTE ESTERASE ,URINE 500 Leu/uL (NEGATIVE); NITRATE,URINE NEGATIVE (NEGATIVE); PH,URINE 5.5 (5.0-8.0); PROTEIN,URINE 30 mg/dL (NEGATIVE); UROBILINOGEN,URINE 0.2 mg/dL (0.2-1.0)
[2024-07-25 23:35] LABS: BACTERIA,URINE FEW /HPF (None Seen); MUCUS,URINE RARE LPF (None Seen); SQUAMOUS EPITHELIAL CELL,UR MANY /HPF (0-2); WBC,URINE 26-50 /HPF (0-1)
[2024-07-25] MEDS: ZOSYN 3.375GM +NS 50ML IV SCH (23:51)
[2024-07-26] VITALS (9 sets, daily range): BP systolic 107–118; BP diastolic 52–68; PULSE 102–116; RESP 17–20; TEMP 97.5–99; O2SAT 94–96
--- NOTE | 2024-07-26 04:05 | NUR ---
RN placed call to hospitalist answering service and received call back from MIN Hernandez. RN notified FRONT DESK PERSON of continued minimal urine output, with improving BP and tachycardia. FRONT DESK PERSON verbalized understanding and states she will wait for latic acid results for further orders. RN verbalized understanding.
--- NOTE | 2024-07-26 05:30 | NUR ---
Call received from Mary COPELAND for update on patient. RN informed WATER MAIN PIPE LAYER that there no recent changes. WATER MAIN PIPE LAYER states that it is possible, depending on morning lab results, that patient may require transfer due to continued tachycardia. WATER MAIN PIPE LAYER states further orders will be made after results are in. RN verbalized understanding.
--- NOTE | 2024-07-26 06:25 | NUR ---
Patient voided 100 mL in bedpan. Pads changed, patient lifted up in bed. Pillows placed for patient's comfort. Patient assisted into semi-gonzalez position.
[2024-07-26 06:27] LABS: BASOPHILS # (AUTO) 0.02 K/uL (0.00-0.20); BASOPHILS % (AUTO) 0.1 % (0.0-5.0); HEMATOCRIT 39.4 % (36-48); IMMATURE GRANULOCYTE ABSOLUTE 0.09 K/uL (0-1); LYMPHOCYTES # (AUTO) 0.8 K/uL (1.0-4.8); LYMPHOCYTES % (AUTO) 4.9 % (21.0-51.0); MEAN CORPUSCULAR HEMOGLOBIN 29.3 pg (27.0-33.0); MEAN CORPUSCULAR VOLUME 91.6 fL (79-99); MONOCYTES # (AUTO) 1.2 K/uL (0.1-1.0); MONOCYTES % (AUTO) 7.5 % (3.0-13.0); NEUTROPHILS # (AUTO) 14.2 K/uL (1.8-7.7); PLATELET COUNT (AUTO) 164 K/uL (130-400); RED CELL DISTRIBUTION WIDTH 14.9 % (11.0-15.5); WHITE BLOOD COUNT (AUTO) 16.4 K/uL (4.8-10.8)
[2024-07-26 06:42] LABS: ALBUMIN 1.8 g/dL (3.5-5.0); BILIRUBIN,TOTAL 0.7 mg/dL (0.2-1.0); CREATININE 1.7 mg/dL (0.5-1.0); MAGNESIUM 1.7 mg/dL (1.80-2.40); POTASSIUM 5.5 mmol/L (3.5-5.1); TOTAL PROTEIN, SERUM 4.5 g/dL (6.0-8.3)
--- NOTE | 2024-07-26 07:09 | NUR ---
Report given to Eder Trevino RN for continuity of care.
--- NOTE | 2024-07-26 09:50 | NUR ---
MD varner, pt seen by Dr. Locke, informed on plan of care - PT for evaluation, no questions asked by pt. Addendum: 07/26/24 at 1006 by REY ARMAS RN Amended: Links added.
--- NOTE | 2024-07-26 11:05 | NUR ---
Notified Viktoria Prado NP regarding pt's continued low urine output, no orders received. Addendum: 07/26/24 at 1827 by REY ARMAS RN Amended: Links added.
--- NOTE | 2024-07-26 11:21 | PN ---
[facility] PROGRESS NOTE Date of Service: Jul 26, 2024 Time of Service: 11:[address] Guido SUBJECTIVE: [ Patient is 69 years old female who came to hospital for elective aborted ER with colostomy closure and extensive laparoscopy lysis of adhesion with . Pt has a hx pf rectal cancer underwent an LAR over five years ago, subsequently she presented with a complication and a stricture and underwent and laparotomy with colostomy creation. She developed a large parastomal hernia that has been tried to repair twice with recurrences. She was seen in the office and after workup the discussion was done in regards to possibly closed in the stoma and repair in the parastomal hernia. Patient is s/p surgery comfortably lying in room 113. Patient denies any shortness of breath, chest pain, nausea, vomiting or any other discomfort other pain where the procedure was performed. Most recent vital signs temperature 97.5 pulse 79 respiration 18 blood pressure 144/73 patient is on 3 L nasal cannula satting 99% WBC 6.1 hemoglobin 14.6 hematocrit 46.8 platelets 164. Sodium 140 potassium 4.3 CO2 36 BUN 13 creatinine 0.8 GFR 80 calcium 8.8 bilirubin 0.3 AST 24 ALT 23. We will continue monitoring patient in the meantime. A.m. labs. 07/25/24 patient was seen by nurse practitioner and physician in room 122 comfortably lying in the bed. HEATER HELPER FORGE to one patient was sitting 99 importance of weaning off the O2. Patient continues to have a gray per surgeon. UA was ordered and came back positive for leucocytosis. We will place pt on Rocephin 2 g daily. Also patient's potassium today was 5.2 and patient will receive one dose of Kayexalate. We will continue to monitor patient in the meantime, a.m. labs. Patient denies any shortness of breath, chest pain, nausea, vomiting 07/26 patient was seen by HEATER HELPER FORGE and physician during rounding. Patient was taken off the oxygen since she satting 98% on 2 L nasal cannula. Patient will receive one Kayexalate due to potassium being 5.5. Patient will continue on a 0.9 at 100 mL/hour due to creatinine worsened today is 1.7 BUN is 28 GFR 32. Patient will receive 2 g of magnesium due to magnesium being 1.7. UA came back positive for leukocytosis Zosyn will be discontinued we will start patient on Merrem Procalcitonin 1.7. WBC 16.4. Urine culture pending. At this moment 24 hours no growth. Patient was also complaining of constipation. Output in colostomy bag. Patient will receive docusate sodium and lactulose. We will continue to monitor patient. A.m. labs] REVIEW OF SYSTEMS CONSTITUTIONAL: Denies fevers, chills, or night sweats. No unintentional weight loss reported. NEUROLOGICAL: Denies headache, amaurosis fugax, motor weakness, sensory deficit, vertigo/spinning sensation, gait abnormalities, or tremors. ENT: No hearing loss, otalgia, otorrhea, rhinitis, rhinorrhea, hoarseness, or sore throat. CARDIOVASCULAR: Denies any exertional angina, dyspnea on exertion, orthopnea, paroxysmal nocturnal dyspnea, palpitations, life-threatening arrhythmias, claudication. PULMONARY: Denies any shortness of breath, cough, phlegm/sputum, hemoptysis, pleuritic chest pain. SLEEP: Denies morning headaches, daytime somnolence or napping. Denies difficulty falling asleep, staying asleep, waking from sleep. Denies knowledge of snoring. GASTROINTESTINAL: Denies any type of dysphagia to either liquids or solids. Denies nausea, vomiting, pyrosis, early satiety, abdominal pain, diarrhea, constipation, or changes in stool consistency or caliber. Denies coffee-ground emesis, hematemesis, hematochezia, or melanotic stools. GENITOURINARY: Denies frequency, urgency, nocturia, hematuria or incontinence (Storage/Irritative symptoms.) Low urinary stream, straining to void, urinary intermittency or hesitancy, splitting of the voiding stream, terminal dribbling. ENDOCRINOLOGIC: Denies polyuria, polydipsia, polyphagia or heat/cold intolerances. HEMATOLOGIC: Denies thrombophilia/previous clots, or coagulopathy/bleeding disorders. ONCOLOGIC: Denies personal history of malignancy. DERMATOLOGIC: Denies rashes or pruritus. PSYCHIATRIC: Denies any suicidal or homicidal ideation. Denies hallucinations. PHYSICAL EXAM GENERAL APPEARANCE: The patient is awake, alert, and oriented, in no acute cardiopulmonary distress. NEUROLOGICAL: Cranial nerves II-XII grossly intact. Motor is 5/5 in bilateral upper and lower extremities proximal to distal. No sensory deficits. HEENT: Face is symmetric. Pupils are equal and reactive. Extraocular movements are intact. NECK: Supple. No JVD. No thyromegaly. No submental, submandibular, pre- /postauricular, occipital or supraclavicular lymphadenopathy. CHEST: Normal chest expansion. No Telemetry. LUNGS: Absence of any rales, rhonchi or any wheezing. CARDIOVASCULAR: Regular. S1 and S2 normal. No appreciable rubs, murmurs or gallops. ABDOMEN: Soft, nontender, and nondistended. There is no rebound, voluntary guarding, or rigidity. : Deferred. No Gray. EXTREMITIES: Non-edematous and not cyanotic. No clubbing. Good capillary refill. SKIN: No skin breakdown. Vital Signs (last 8hr) Date Time Temp Pulse Resp B/P (MAP) Pulse Ox O2 Delivery O2 Flow Rate FiO2 07/26/24 07:40 96 Nasal Cannula* 2 28 07/26/24 07:00 98.2 109 17 114/61 96 Room Air 07/26/24 04:00 99.0 110 18 112/56 94 Room Air LABS: Laboratory: Test 07/26/24 06:15 07/25/24 23:15 07/25/24 06:31 Range/Units White Blood Count 16.4 #H 4.8-10.8 K/uL Red Blood Count 4.30 4.00-5.50 MIL/uL Hemoglobin 12.6 12.0-16.0 g/dL Hematocrit 39.4 36-48 % Mean Corpuscular Volume 91.6 79-99 fL Mean Corpuscular Hemoglobin 29.3 27.0-33.0 pg Mean Corpuscular Hemoglobin Concent 32.0 32.0-36.0 g/dL Red Cell Distribution Width 14.9 11.0-15.5 % Platelet Count 164 130-400 K/uL Mean Platelet Volume 10.6 H 7.5-10.5 fL Immature Granulocyte % (Auto) 0.5 0-1 % Neutrophils (%) (Auto) 87.0 H 40.0-77.0 % Lymphocytes (%) (Auto) 4.9 L 21.0-51.0 % Monocytes (%) (Auto) 7.5 3.0-13.0 % Eosinophils (%) (Auto) 0.0 0.0-8.0 % Basophils (%) (Auto) 0.1 0.0-5.0 % Neutrophils # (Auto) 14.2 H 1.8-7.7 K/uL Lymphocytes # (Auto) 0.8 L 1.0-4.8 K/uL Monocytes # (Auto) 1.2 H 0.1-1.0 K/uL Eosinophils # (Auto) 0.00 0.00-0.70 K/uL Basophils # (Auto) 0.02 0.00-0.20 K/uL Absolute Immature Granulocyte (auto 0.09 0-1 K/uL Nucleated Red Blood Cells 0.0 0.0-0.19 % Sodium Level 138 136-145 mmol/L Potassium Level 5.5 H 3.5-5.1 mmol/L Chloride Level 105 101-111 mmol/L Carbon Dioxide Level 30 21-32 mmol/L Blood Urea Nitrogen 28 H 7-18 mg/dL Creatinine 1.7 H 0.5-1.0 mg/dL Glomerular Filtration Rate Calc 32 >90 mL/min Random Glucose 134 H 70-105 mg/dL Lactic Acid Level 2.0 0.8-2.5 mmol/L Total Calcium 7.9 L 8.5-10.1 mg/dL Magnesium Level 1.70 L 1.80-2.40 mg/dL Total Bilirubin 0.7 0.2-1.0 mg/dL Aspartate Amino Transf (AST/SGOT) 18 10-37 U/L Alanine Aminotransferase (ALT/SGPT) 13 # 12-78 U/L Alkaline Phosphatase 68 50-136 U/L Total Protein 4.5 #L 6.0-8.3 g/dL Albumin 1.8 #L 3.5-5.0 g/dL Procalcitonin 1.70 H 0.05-0.5 ng/mL Urine Color DARK-YELLOW YELLOW Urine Appearance CLOUDY H CLEAR Urine pH 5.5 5.0-8.0 Urine Specific [place] 1.028 1.001-1.031 Urine Protein 30 H NEGATIVE mg/dL Urine Glucose (UA) NEGATIVE NEGATIVE mg/dL Urine Ketones 5 H NEGATIVE mg/dL Urine Occult Blood +- (TRACE) H NEGATIVE Urine Nitrate NEGATIVE NEGATIVE Urine Bilirubin 0.5 H NEGATIVE mg/dL Urine Urobilinogen 0.2 0.2-1.0 mg/dL Urine Leukocyte Esterase 500 H NEGATIVE Santos/uL Urine RBC 6-10 H 0-1 /HPF Urine WBC 26-50 H 0-1 /HPF Urine Squamous Epithelial Cells MANY 0-2 /HPF Urine Amorphous Crystals (Auto) RARE None Seen /LPF Urine Bacteria FEW None Seen /HPF Urine Hyaline Casts 11-25 H 0-1 /LPF /LPF White Cell Morphology Comment See comments Current Medications Medications (Trade) Dose Ordered Sig/Anastasia Route PRN Reason Start Time Stop Time Status Last Admin Dose Admin Acetaminophen/ Hydrocodone Bitart (NORco 5/325MG) 1 tab Q4H PRN PO MODERATE PAIN (4-6) 07/24/24 11:00 07/29/24 10:59 07/26/24 06:33 1 TAB Ceftriaxone Sodium (Rocephin 2gm Inj) 2 gm Q24H IVPB 07/25/24 13:00 07/25/24 22:37 DC 07/25/24 13:10 2 GM Heparin Sodium (Porcine) (HEParin 5,000 UNIT VIAL) 5,000 unit Q8H SQ 07/24/24 23:00 08/23/24 13:59 07/26/24 07:30 5,000 UNIT Heparin Sodium (Porcine) (HEParin 5,000 UNIT VIAL) 5,000 unit TID SQ 07/24/24 14:00 07/24/24 20:20 DC 07/24/24 15:07 5,000 UNIT Morphine Sulfate (morPHINE 4MG SYG) 4 mg Q3H PRN IV SEVERE PAIN (7-10) 07/24/24 11:00 07/31/24 10:59 07/26/24 09:38 4 MG Ondansetron HCl (zoFRAN 4MG INJ) 4 mg Q4H PRN IVP NAUSEA 07/24/24 11:00 08/23/24 10:59 07/26/24 09:30 4 MG Piperacillin Sod/ Tazobactam Sod (Zosyn 3.375gm+NS 50ml) 3.375 gm Q8H IV 07/25/24 23:00 08/04/24 22:59 07/26/24 07:22 3.375 GM Potassium Chloride/Dextrose/ Sod Cl 1,000 ml @ 75 mls/hr [id number] IV 07/24/24 11:00 08/23/24 10:59 07/25/24 04:04 75 MLS/HR Sodium Chloride 500 ml @ 0 mls/hr Q0M IV 07/25/24 23:00 08/24/24 22:59 07/25/24 22:59 500 MLS/HR Sodium Chloride 1,000 ml @ 125 mls/hr Q8H IV 07/25/24 23:00 08/24/24 22:59 07/25/24 22:58 125 MLS/HR DIAGNOSTICS / RADIOLOGY: [ ] ASSESSMENT: [ hx rectal cancer s/p LAR 5 yrs ago hx large parastomal hernia s/p Aborted LAR with colostomy closure. Acute complicated cystitis Extensive laparoscopic lysis of adhesions Uncontrolled hypertension POA Constipation Electrolyte imbalance hypokalemia K 5.5 hypomagnesemia mg 1.7 POA Acute kidney injury creatinine 1.7 BUN 28 GFR 32 Leukocytosis WBC 16.4 procalcitonin 1.7 ] PLAN: [ Admit to: Medical-surgical floor abx Merrem NEURO: Minimize central acting medications as possible. Fall Precautions. Well lighted room through the day and minimize interruptions through the night to prevent acute delirium. PULMONARY: Supplemental 02 as needed BiPAP as necessary, for respiratory distress Titrate Fio2 to keep Spo2 > or = 90% DuoNebs and CPT as needed IS hourly while awake for pulmonary hygiene Out of bed to chair as tolerated VAP Bundle Maintain aspiration precautions at all times CARDIOVASCULAR: Follow hemodynamics. Vital signs per facility protocol GI & NUTRITION: Continue nutritional support Aspirations precautions Prokinetic agents and laxatives as needed KIDNEYS & ELECTROLYTES: Strict monitoring of intake and output Daily weights Avoid nephrotoxic agents Monitor electrolytes and replace as needed Goal urine output of 30mL/hr or 0.5mL/kg/hr Medications to be dosed according to renal function. Avoid contrast if possible ENDOCRINE: Maintain blood glucose between 100-180 at all times. Insulin sliding scale for blood glucose management Hypoglycemia and hyperglycemia protocol in place INFECTIOUS DISEASE: Trend temperature, WBC and procalcitonin level Follow cultures, deescalate antibiotics as soon as possible. Panculture if new onset fever HEMATOLOGY & COAGULATION: Monitor H&H. Keep Hgb > 7 Transfuse 1 unit of PRBC for Hgb < 7 Transfuse 1 pack of platelets of platelets < 20, 000 Watch for any signs and symptoms of bleeding SKIN: Pressure ulcer prevention per facility protocol Specialty mattress as needed Treatment plan discussed with patient and family at the bedside Medications to be reconciled once obtained by patient and/or family and available to be reconciled in computer p.r.n. medication for pain nausea and vomiting Questions were answered We will continue to monitor the patient closely Nuclear Security Officer for disposition Rehab: PT/OT GI: PPI DVT: SCD's Code Status: Full Resuscitation Disposition: TBD Prognosis: Guarded ] ATTESTATION BY PHYSICIAN I have seen and examined the patient. I reviewed the documentation, medical decision making, and treatment plan as noted by the mid-level provider above. I agree with the findings and plan of care. TALIB GUIDO MD, [facility] [place] Jul 26, 2024 11:21
[2024-07-26] MEDS ORDERED: ALBUMIN (HUMAN) 25% 50 ML IV SCH (11:30)
--- NOTE | 2024-07-26 11:34 | NUR ---
at 1134 pt was taken to radiology via wheelchair and back to room at 1147 Addendum: 07/26/24 at 1209 by REY ARMAS RN Amended: Links added.
[2024-07-26] MEDS: kayEXALate 15GM/60ML PO ONE (12:23)
[2024-07-26] MEDS: LACTULOSE 20 GM/30 ML UDCUP PO ONE (12:23)
[2024-07-26] MEDS: MAGNESIUM 2GM PREMIX 50ML 50 ML IV SCH (12:24)
[2024-07-26] MEDS: MEROPENEM 2 GM in 0.9%NACL 100ML 100 ML IV SCH ×2 (12:24→21:59)
--- NOTE | 2024-07-26 12:40 | HMCIMG ---
ABD 1VW REASON: constipation FINDINGS: Single image of the abdomen was obtained. There is nonspecific bowel gas pattern. There is no evidence of obstruction or constipation. There are extensive lucent streaks and simultaneous soft tissues which may be subcutaneous emphysema, clinical correlation recommended in this regard. IMPRESSION: 1. Findings consistent with probable extensive subcutaneous emphysema in the anterior abdominal wall 2. Nonspecific bowel gas pattern, no evidence of constipation.
--- NOTE | 2024-07-26 14:25 | NUR ---
NURSE NOTE REPORT RECEIVED FROM RORY LE, PT WILL BE TRANSFERRING TO ROOM 329.
--- NOTE | 2024-07-26 14:40 | NUR ---
pt transferred to 329 via her bed, report given to Clemencia Cummins-RORY Addendum: 07/26/24 at 1504 by REY ARMAS RN Amended: Links added.
--- NOTE | 2024-07-26 14:45 | NUR ---
NURSE NOTE PT AOX3, COLOSTOMY BAG TO LLQ, DRESSING UNDER THE COLOSTOMY POST PROCEDURE, ABD DISTENDED, PAIN TO AREA BUT PAIN MEDICATION ALREADY ADMINISTERED. STABLE VS, NO 02 IN PLACED. 20G RAC IN PLACED DRY AND INTACT NS RUNNING AT 125MLS/HR. BED LOW AND LOCKED, SIDERAILS X2 UP, CALL LIGHT WITHIN REACH. WILL CONTINUE TO MONITOR.
--- NOTE | 2024-07-26 17:47 | PN ---
COLORECTAL PROGRESS NOTE Date of Visit: Jul 26, 2024 Time of Visit: 17:42 Events / Notes: [ 69 YO patient with hx of rectal cancer s/p LAR with DI on 05/06/2012 with subsequent closure of ileostomy. 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 She underwent a partial colectomy with end colostomy and parastomal hernia repair in 07/07/21. She then had parastomal hernia recur and thus present to clinic for repair of parastomal hernia and had wanted to have colostomy reversed. She underwent a robotic lysis of adhesions but parastomal hernia repair and LAR were aborted d/t extensive amount of adhesions and large body habitus making it difficult to proceed with procedure. The patient was found resting in HF. Respirations unlabored. She was on O2 at 2l/min via nc. Abdomen is soft and tender. Colostomy in place with no output during exam. Incisions D&I rotary cutter. Zuleta cath draining clear yellow urine via gravity. She has tolerated full liquid diet. POC discussed with patient and family and encouraged ambulation. Zuleta is to be removed today and PT consulted to assist patient to ambulate. Patient and family verbalized understanding. 07/26/24: No acute events overnight. Patient has been weaned off O2. She is resting in bed with respirations are even and unlabored. BBS clear. Abdomen soft but distended. Active BS present. Incisions D&I maicol. No output via colostomy during time of visit. She has voided. She is burping but no flatus via colostomy. Encouraged ambulation and I/S exercises. She agreed. ] Review of Systems: CONSTITUTIONAL: No malaise or change in sensation of wellbeing. ENMT: No rhinorrhea, otorrhea, sinus pain, ear ache. CARDIOVASCULAR: No angina, palpitations, RESPIRATORY: No SOB. GASTROINTESTINAL: No abdominal pain, nausea, vomiting, diarrhea, hematemesis, melena or change in the patient's habitual bowel movements consistency/number. GENITOURINARY: No dysuria, hematuria or change in bladder continence. MUSCULOSKELETAL: No new muscle pain or decrease in muscular strength. No new joint swelling, redness or tenderness. SKIN: No new rash. Physical Exam: GEN: Awake, alert, oriented in person, time and place, and in no acute distress. HEENT: No rhinorrhea. Oral pharyngeal mucosa is pink, moist and within normal limits. CHEST: Inspection, Respirations unlabored. O2 at 2l/min via NC; CARDIAC: PMI is within normal limits. Heart sounds are regular. ABD: Soft, mildly tender to stoma site and distended. No peritoneal signs on palpation. No organomegaly. Colostomy with no output at the moment. Incisions D&I rotary cutter with dermabond. Dressings dry. EXT: No cyanosis or clubbing. No edema. SKIN: Intact. No rashes. JOINTS: No evidence of synovitis or acute arthritis. NEURO: Alert and oriented to name, place and person. No focal motor deficits. Normal speech. Strength is normal. Vital Signs (last 8hr) Date Time Temp Pulse Resp B/P (MAP) Pulse Ox O2 Delivery O2 Flow Rate FiO2 07/26/24 16:00 97.5 105 17 114/59 92 Room Air 07/26/24 12:00 98.1 114 17 108/55 99 Room Air Laboratory: [ ] Laboratory: Test 07/26/24 06:15 07/25/24 23:15 07/25/24 06:31 Range/Units White Blood Count 16.4 #H 4.8-10.8 K/uL Red Blood Count 4.30 4.00-5.50 MIL/uL Hemoglobin 12.6 12.0-16.0 g/dL Hematocrit 39.4 36-48 % Mean Corpuscular Volume 91.6 79-99 fL Mean Corpuscular Hemoglobin 29.3 27.0-33.0 pg Mean Corpuscular Hemoglobin Concent 32.0 32.0-36.0 g/dL Red Cell Distribution Width 14.9 11.0-15.5 % Platelet Count 164 130-400 K/uL Mean Platelet Volume 10.6 H 7.5-10.5 fL Immature Granulocyte % (Auto) 0.5 0-1 % Neutrophils (%) (Auto) 87.0 H 40.0-77.0 % Lymphocytes (%) (Auto) 4.9 L 21.0-51.0 % Monocytes (%) (Auto) 7.5 3.0-13.0 % Eosinophils (%) (Auto) 0.0 0.0-8.0 % Basophils (%) (Auto) 0.1 0.0-5.0 % Neutrophils # (Auto) 14.2 H 1.8-7.7 K/uL Lymphocytes # (Auto) 0.8 L 1.0-4.8 K/uL Monocytes # (Auto) 1.2 H 0.1-1.0 K/uL Eosinophils # (Auto) 0.00 0.00-0.70 K/uL Basophils # (Auto) 0.02 0.00-0.20 K/uL Absolute Immature Granulocyte (auto 0.09 0-1 K/uL Nucleated Red Blood Cells 0.0 0.0-0.19 % Sodium Level 138 136-145 mmol/L Potassium Level 5.5 H 3.5-5.1 mmol/L Chloride Level 105 101-111 mmol/L Carbon Dioxide Level 30 21-32 mmol/L Blood Urea Nitrogen 28 H 7-18 mg/dL Creatinine 1.7 H 0.5-1.0 mg/dL Glomerular Filtration Rate Calc 32 >90 mL/min Random Glucose 134 H 70-105 mg/dL Lactic Acid Level 2.0 0.8-2.5 mmol/L Total Calcium 7.9 L 8.5-10.1 mg/dL Magnesium Level 1.70 L 1.80-2.40 mg/dL Total Bilirubin 0.7 0.2-1.0 mg/dL Aspartate Amino Transf (AST/SGOT) 18 10-37 U/L Alanine Aminotransferase (ALT/SGPT) 13 # 12-78 U/L Alkaline Phosphatase 68 50-136 U/L Total Protein 4.5 #L 6.0-8.3 g/dL Albumin 1.8 #L 3.5-5.0 g/dL Procalcitonin 1.70 H 0.05-0.5 ng/mL Urine Color DARK-YELLOW YELLOW Urine Appearance CLOUDY H CLEAR Urine pH 5.5 5.0-8.0 Urine Specific [place] 1.028 1.001-1.031 Urine Protein 30 H NEGATIVE mg/dL Urine Glucose (UA) NEGATIVE NEGATIVE mg/dL Urine Ketones 5 H NEGATIVE mg/dL Urine Occult Blood +- (TRACE) H NEGATIVE Urine Nitrate NEGATIVE NEGATIVE Urine Bilirubin 0.5 H NEGATIVE mg/dL Urine Urobilinogen 0.2 0.2-1.0 mg/dL Urine Leukocyte Esterase 500 H NEGATIVE Santos/uL Urine RBC 6-10 H 0-1 /HPF Urine WBC 26-50 H 0-1 /HPF Urine Squamous Epithelial Cells MANY 0-2 /HPF Urine Amorphous Crystals (Auto) RARE None Seen /LPF Urine Bacteria FEW None Seen /HPF Urine Hyaline Casts 11-25 H 0-1 /LPF /LPF White Cell Morphology Comment See comments Current Medications Medications (Trade) Dose Ordered Sig/Anastasia Route PRN Reason Start Time Stop Time Status Last Admin Dose Admin Acetaminophen/ Hydrocodone Bitart (NORco 5/325MG) 1 tab Q4H PRN PO MODERATE PAIN (4-6) 07/24/24 11:00 07/29/24 10:59 07/26/24 06:33 1 TAB Albumin Human 50 ml @ 0 mls/hr AD IV 07/26/24 11:30 08/05/24 11:29 Ceftriaxone Sodium (Rocephin 2gm Inj) 2 gm Q24H IVPB 07/25/24 13:00 07/25/24 22:37 DC 07/25/24 13:10 2 GM Heparin Sodium (Porcine) (HEParin 5,000 UNIT VIAL) 5,000 unit Q8H SQ 07/24/24 23:00 08/23/24 13:59 07/26/24 16:11 5,000 UNIT Heparin Sodium (Porcine) (HEParin 5,000 UNIT VIAL) 5,000 unit TID SQ 07/24/24 14:00 07/24/24 20:20 DC 07/24/24 15:07 5,000 UNIT Magnesium Sulfate 50 ml @ 0 mls/hr PROTOCOL IV 07/26/24 11:30 08/25/24 11:29 07/26/24 12:24 50 MLS/HR Meropenem 2 gm/ Sodium Chloride 100 ml @ 33.333 mls/ hr Q8H IV 07/26/24 11:30 08/05/24 11:29 07/26/24 12:24 33.333 MLS/HR Morphine Sulfate (morPHINE 4MG SYG) 4 mg Q3H PRN IV SEVERE PAIN (7-10) 07/24/24 11:00 07/31/24 10:59 07/26/24 09:38 4 MG Ondansetron HCl (zoFRAN 4MG INJ) 4 mg Q4H PRN IVP NAUSEA 07/24/24 11:00 08/23/24 10:59 07/26/24 09:30 4 MG Piperacillin Sod/ Tazobactam Sod (Zosyn 3.375gm+NS 50ml) 3.375 gm Q8H IV 07/25/24 23:00 07/26/24 11:15 DC 07/26/24 07:22 3.375 GM Potassium Chloride/Dextrose/ Sod Cl 1,000 ml @ 75 mls/hr [id number] IV 07/24/24 11:00 08/23/24 10:59 07/25/24 04:04 75 MLS/HR Sodium Chloride 500 ml @ 0 mls/hr Q0M IV 07/25/24 23:00 08/24/24 22:59 07/25/24 22:59 500 MLS/HR Sodium Chloride 1,000 ml @ 125 mls/hr Q8H IV 07/25/24 23:00 08/24/24 22:59 07/26/24 12:25 125 MLS/HR Assessment: [colostomy status parastomal hernia ] Plan: [Regular diet KUB today. Encourage ambulation--PT consulted Encourage I/S exercises Pain meds as needed Antiemetics prn Plan for disposition in the next 24-48 hours Please call with questions, concerns, and change in clinical status. Appreciate hospitalist's assistance in our patient care. ] NEIDA DO NP Jul 26, 2024 17:47
[2024-07-27] MEDS: MAG/ALUM/SIMETH 30 ML UDCUP PO PRN (01:56)
[2024-07-27 03:48] LABS: BASOPHILS # (AUTO) 0.03 K/uL (0.00-0.20); BASOPHILS % (AUTO) 0.2 % (0.0-5.0); HEMATOCRIT 38.6 % (36-48); IMMATURE GRANULOCYTE ABSOLUTE 0.09 K/uL (0-1); LYMPHOCYTES # (AUTO) 0.6 K/uL (1.0-4.8); LYMPHOCYTES % (AUTO) 4.3 % (21.0-51.0); MEAN CORPUSCULAR HEMOGLOBIN 29.8 pg (27.0-33.0); MEAN CORPUSCULAR HGB CONC 32.4 g/dL (32.0-36.0); MEAN CORPUSCULAR VOLUME 91.9 fL (79-99); MONOCYTES # (AUTO) 0.9 K/uL (0.1-1.0); MONOCYTES % (AUTO) 6.5 % (3.0-13.0); NEUTROPHILS # (AUTO) 11.9 K/uL (1.8-7.7); NEUTROPHILS % (AUTO) 88.3 % (40.0-77.0); PLATELET COUNT (AUTO) 158 K/uL (130-400); WHITE BLOOD COUNT (AUTO) 13.5 K/uL (4.8-10.8)
[2024-07-27 03:57] LABS: CREATININE 1.1 mg/dL (0.5-1.0); POTASSIUM 4.5 mmol/L (3.5-5.1)
[2024-07-27 04:00] VITALS: BP 129/75; PULSE 95; RESP 19; TEMP 98.5
[2024-07-27] MEDS ORDERED: COMPOUND IV MISC 1 EACH IVSOLN MISC PRN (07:00)
[2024-07-27 08:00] VITALS: BP 124/63; PULSE 96; RESP 18; TEMP 98.3; O2SAT 94
--- NOTE | 2024-07-27 08:39 | DS ---
Discharge Summary HOSPITAL COURSE SUMMARY: [No acute events overnight. Patient has tolerated regular diet with no n/v. BBS clear Abd soft. She is having soft stool output from colostomy. She is voiding well. Plan for discharge today. Home care instructions with ER warnings given. She is to f/u at [facility] on 08/06/24 at 10:15am. She agrees.] FORESTRY AID(S): [Hospitalist] PROCEDURES: [Robotic Extensive lysis of adhesions; aborted LAR with colostomy closure] PROBLEM(S): [Colostomy status. Rectosigmoid stricture. Peristomal hernia] DISCHARGE INSTRUCTIONS: [ Resume regular diet NO bending, squatting, pushing, pulling objects greater than 10 lbs Return to hospital if fever, increase in abdominal pain with n/v, chest pain, sob Keep fu at [facility] on 08/06/24 at 10:15am Appreciate hospitalist's assistance in our patient care. ] Home Meds Active Scripts Ibuprofen (Ibuprofen 800 mg Tab) 800 Mg Tab, 800 MG PO Q6H PRN for PAIN, #30 TAB Prov:CAPO CARLISLE STITCH WELDER 01/01/24 Reported Medications Lisinopril (Lisinopril) 5 Mg Tablet, 5 MG PO HS 07/19/24 [Nexium] No Conflict Check, PO AD 07/19/24 Escitalopram Oxalate (Escitalopram Oxalate) 10 Mg Tablet, 10 MG PO DAILY, TAB 07/21/17 Time spent arranging discharge: 1-30 minutes NEIDA DO NP Jul 27, 2024 08:39
[2024-07-27] MEDS: (Escitalopram Oxalate 10 MG) PO SCH (08:41)
[2024-07-27] MEDS: doCUSate SODIUM 100 MG CAP PO ONE (08:42)
[2024-07-27] MEDS: FAMOTIDINE 20MG TAB PO SCH (08:42)
[2024-07-27] MEDS: HEParin 5,000 UNIT VIAL SQ SCH (09:01)
--- NOTE | 2024-07-27 09:30 | HMCIMG ---
ABD 1VW REASON: R/O ileus, sbo FINDINGS: Single image of the abdomen was obtained. Bowel gas pattern is normal. Bones and soft tissues appear unremarkable. There are no abnormal calcifications. There is no evidence of foreign body. IMPRESSION: 1. Negative single view of the abdomen.
--- NOTE | 2024-07-27 10:21 | PN ---
[facility] PROGRESS NOTE Date of Service: Jul 27, 2024 Time of Service: 10:[address] Locke SUBJECTIVE: [ Patient is 69 years old female who came to hospital for elective aborted ER with colostomy closure and extensive laparoscopy lysis of adhesion with . Pt has a hx pf rectal cancer underwent an LAR over five years ago, subsequently she presented with a complication and a stricture and underwent and laparotomy with colostomy creation. She developed a large parastomal hernia that has been tried to repair twice with recurrences. She was seen in the office and after workup the discussion was done in regards to possibly closed in the stoma and repair in the parastomal hernia. Patient is s/p surgery comfortably lying in room 113. Patient denies any shortness of breath, chest pain, nausea, vomiting or any other discomfort other pain where the procedure was performed. Most recent vital signs temperature 97.5 pulse 79 respiration 18 blood pressure 144/73 patient is on 3 L nasal cannula satting 99% WBC 6.1 hemoglobin 14.6 hematocrit 46.8 platelets 164. Sodium 140 potassium 4.3 CO2 36 BUN 13 creatinine 0.8 GFR 80 calcium 8.8 bilirubin 0.3 AST 24 ALT 23. We will continue monitoring patient in the meantime. A.m. labs. 07/25/24 patient was seen by nurse practitioner and physician in room 122 comfortably lying in the bed. JAVA DEVELOPMENT MANAGER to one patient was sitting 99 importance of weaning off the O2. Patient continues to have a gray per surgeon. UA was ordered and came back positive for leucocytosis. We will place pt on Rocephin 2 g daily. Also patient's potassium today was 5.2 and patient will receive one dose of Kayexalate. We will continue to monitor patient in the meantime, a.m. labs. Patient denies any shortness of breath, chest pain, nausea, vomiting 07/26 patient was seen by JAVA DEVELOPMENT MANAGER and physician during rounding. Patient was taken off the oxygen since she satting 98% on 2 L nasal cannula. Patient will receive one Kayexalate due to potassium being 5.5. Patient will continue on a 0.9 at 100 mL/hour due to creatinine worsened today is 1.7 BUN is 28 GFR 32. Patient will receive 2 g of magnesium due to magnesium being 1.7. UA came back positive for leukocytosis Zosyn will be discontinued we will start patient on Merrem Procalcitonin 1.7. WBC 16.4. Urine culture pending. At this moment 24 hours no growth. Patient was also complaining of constipation. Output in colostomy bag. Patient will receive docusate sodium and lactulose. We will continue to monitor patient. A.m. labs 07/27 patient was seen by nurse practitioner and physician during rounding in room 329 comfortably lying in bed. Patient was cleared by primary to be discharged home. Patient denies any shortness of breath, chest pain, nausea, vomiting or any other discomfort. WBC has improved today is 13.5. Electrolytes within normal limits. KUB is negative for constipation showed just some air gas which is consistent with the recent surgery performed. Patient is passing gases and also there is output in colostomy bag. Patient to be discharged home follow up with PCP in 2 to 3 days. Follow up with Dr. Cuevas as scheduled] REVIEW OF SYSTEMS CONSTITUTIONAL: Denies fevers, chills, or night sweats. No unintentional weight loss reported. NEUROLOGICAL: Denies headache, amaurosis fugax, motor weakness, sensory deficit, vertigo/spinning sensation, gait abnormalities, or tremors. ENT: No hearing loss, otalgia, otorrhea, rhinitis, rhinorrhea, hoarseness, or sore throat. CARDIOVASCULAR: Denies any exertional angina, dyspnea on exertion, orthopnea, paroxysmal nocturnal dyspnea, palpitations, life-threatening arrhythmias, claudication. PULMONARY: Denies any shortness of breath, cough, phlegm/sputum, hemoptysis, pleuritic chest pain. SLEEP: Denies morning headaches, daytime somnolence or napping. Denies difficulty falling asleep, staying asleep, waking from sleep. Denies knowledge of snoring. GASTROINTESTINAL: Denies any type of dysphagia to either liquids or solids. Denies nausea, vomiting, pyrosis, early satiety, abdominal pain, diarrhea, constipation, or changes in stool consistency or caliber. Denies coffee-ground emesis, hematemesis, hematochezia, or melanotic stools. GENITOURINARY: Denies frequency, urgency, nocturia, hematuria or incontinence (Storage/Irritative symptoms.) Low urinary stream, straining to void, urinary intermittency or hesitancy, splitting of the voiding stream, terminal dribbling. ENDOCRINOLOGIC: Denies polyuria, polydipsia, polyphagia or heat/cold intolerances. HEMATOLOGIC: Denies thrombophilia/previous clots, or coagulopathy/bleeding disorders. ONCOLOGIC: Denies personal history of malignancy. DERMATOLOGIC: Denies rashes or pruritus. PSYCHIATRIC: Denies any suicidal or homicidal ideation. Denies hallucinations. PHYSICAL EXAM GENERAL APPEARANCE: The patient is awake, alert, and oriented, in no acute cardiopulmonary distress. NEUROLOGICAL: Cranial nerves II-XII grossly intact. Motor is 5/5 in bilateral upper and lower extremities proximal to distal. No sensory deficits. HEENT: Face is symmetric. Pupils are equal and reactive. Extraocular movements are intact. NECK: Supple. No JVD. No thyromegaly. No submental, submandibular, pre-/postauricular, occipital or supraclavicular lymphadenopathy. CHEST: Normal chest expansion. No Telemetry. LUNGS: Absence of any rales, rhonchi or any wheezing. CARDIOVASCULAR: Regular. S1 and S2 normal. No appreciable rubs, murmurs or gallops. ABDOMEN: Soft, nontender, and nondistended. There is no rebound, voluntary guarding, or rigidity. : Deferred. No Gray. EXTREMITIES: Non-edematous and not cyanotic. No clubbing. Good capillary refill. SKIN: No skin breakdown. Vital Signs (last 8hr) Date Time Temp Pulse Resp B/P (MAP) Pulse Ox O2 Delivery O2 Flow Rate FiO2 07/27/24 08:00 98.2 96 18 124/63 94 Room Air 21 07/27/24 04:00 98.4 95 19 129/75 94 Room Air LABS: Laboratory: Test 07/27/24 03:27 07/26/24 19:49 07/26/24 06:15 07/25/24 23:15 Range/Units White Blood Count 13.5 H 4.8-10.8 K/uL Red Blood Count 4.20 4.00-5.50 MIL/uL Hemoglobin 12.5 12.0-16.0 g/dL Hematocrit 38.6 36-48 % Mean Corpuscular Volume 91.9 79-99 fL Mean Corpuscular Hemoglobin 29.8 27.0-33.0 pg Mean Corpuscular Hemoglobin Concent 32.4 32.0-36.0 g/dL Red Cell Distribution Width 15.0 11.0-15.5 % Platelet Count 158 130-400 K/uL Mean Platelet Volume 10.9 H 7.5-10.5 fL Immature Granulocyte % (Auto) 0.7 0-1 % Neutrophils (%) (Auto) 88.3 H 40.0-77.0 % Lymphocytes (%) (Auto) 4.3 L 21.0-51.0 % Monocytes (%) (Auto) 6.5 3.0-13.0 % Eosinophils (%) (Auto) 0.0 0.0-8.0 % Basophils (%) (Auto) 0.2 0.0-5.0 % Neutrophils # (Auto) 11.9 H 1.8-7.7 K/uL Lymphocytes # (Auto) 0.6 L 1.0-4.8 K/uL Monocytes # (Auto) 0.9 0.1-1.0 K/uL Eosinophils # (Auto) 0.00 0.00-0.70 K/uL Basophils # (Auto) 0.03 0.00-0.20 K/uL Absolute Immature Granulocyte (auto 0.09 0-1 K/uL Nucleated Red Blood Cells 0.0 0.0-0.19 % Sodium Level 139 136-145 mmol/L Potassium Level 4.5 3.5-5.1 mmol/L Chloride Level 106 101-111 mmol/L Carbon Dioxide Level 27 21-32 mmol/L Blood Urea Nitrogen 29 H 7-18 mg/dL Creatinine 1.1 H 0.5-1.0 mg/dL Glomerular Filtration Rate Calc 55 >90 mL/min Random Glucose 122 H 70-105 mg/dL Total Calcium 8.3 L 8.5-10.1 mg/dL Whole Blood Glucose 311 H 70-110 MG/DL Lactic Acid Level 2.0 0.8-2.5 mmol/L Magnesium Level 1.70 L 1.80-2.40 mg/dL Total Bilirubin 0.7 0.2-1.0 mg/dL Aspartate Amino Transf (AST/SGOT) 18 10-37 U/L Alanine Aminotransferase (ALT/SGPT) 13 # 12-78 U/L Alkaline Phosphatase 68 50-136 U/L Total Protein 4.5 #L 6.0-8.3 g/dL Albumin 1.8 #L 3.5-5.0 g/dL Procalcitonin 1.70 H 0.05-0.5 ng/mL Urine Color DARK-YELLOW YELLOW Urine Appearance CLOUDY H CLEAR Urine pH 5.5 5.0-8.0 Urine Specific [place] 1.028 1.001-1.031 Urine Protein 30 H NEGATIVE mg/dL Urine Glucose (UA) NEGATIVE NEGATIVE mg/dL Urine Ketones 5 H NEGATIVE mg/dL Urine Occult Blood +- (TRACE) H NEGATIVE Urine Nitrate NEGATIVE NEGATIVE Urine Bilirubin 0.5 H NEGATIVE mg/dL Urine Urobilinogen 0.2 0.2-1.0 mg/dL Urine Leukocyte Esterase 500 H NEGATIVE Santos/uL Urine RBC 6-10 H 0-1 /HPF Urine WBC 26-50 H 0-1 /HPF Urine Squamous Epithelial Cells MANY 0-2 /HPF Urine Amorphous Crystals (Auto) RARE None Seen /LPF Urine Bacteria FEW None Seen /HPF Urine Hyaline Casts 11-25 H 0-1 /LPF /LPF Current Medications Medications (Trade) Dose Ordered Sig/Anastasia Route PRN Reason Start Time Stop Time Status Last Admin Dose Admin Acetaminophen/ Hydrocodone Bitart (NORco 5/325MG) 1 tab Q4H PRN PO MODERATE PAIN (4-6) 07/24/24 11:00 07/29/24 10:59 07/26/24 17:44 1 TAB Al Hydroxide/Mg Hydroxide (MAALox PLUS 30ML) 30 ml Q6H PRN PO HEARTBURN 07/27/24 02:00 08/26/24 01:59 07/27/24 01:56 30 ML Albumin Human 50 ml @ 0 mls/hr AD IV 07/26/24 11:30 07/27/24 06:20 DC Ceftriaxone Sodium (Rocephin 2gm Inj) 2 gm Q24H IVPB 07/25/24 13:00 07/25/24 22:37 DC 07/25/24 13:10 2 GM Famotidine (Pepcid 20mg Tab) 20 mg DAILY PO 07/27/24 09:00 08/26/24 08:59 07/27/24 08:42 20 MG Heparin Sodium (Porcine) (HEParin 5,000 UNIT VIAL) 5,000 unit Q8H SQ 07/24/24 23:00 07/27/24 06:19 DC 07/27/24 00:23 5,000 UNIT Heparin Sodium (Porcine) (HEParin 5,000 UNIT VIAL) 5,000 unit Q8H SQ 07/27/24 09:00 08/26/24 08:59 07/27/24 09:01 5,000 UNIT Heparin Sodium (Porcine) (HEParin 5,000 UNIT VIAL) 5,000 unit TID SQ 07/24/24 14:00 07/24/24 20:20 DC 07/24/24 15:07 5,000 UNIT Home Med (Home Medication) (Escitalopram Oxalate 10 MG) DAILY PO 07/27/24 09:00 08/26/24 08:59 Lisinopril (Prinivil 5mg) 5 mg HS PO 07/27/24 21:00 08/26/24 20:59 Magnesium Sulfate 50 ml @ 0 mls/hr PROTOCOL IV 07/26/24 11:30 08/25/24 11:29 07/26/24 12:24 50 MLS/HR Meropenem 1 gm/ Sodium Chloride 100 ml @ 33.333 mls/ hr Q12H IV 07/27/24 10:00 08/05/24 11:29 Meropenem 2 gm/ Sodium Chloride 100 ml @ 33.333 mls/ hr Q12H IV 07/26/24 22:00 07/27/24 06:37 DC 07/26/24 21:59 33.333 MLS/HR Meropenem 2 gm/ Sodium Chloride 100 ml @ 33.333 mls/ hr Q8H IV 07/26/24 11:30 07/26/24 21:31 DC 07/26/24 12:24 33.333 MLS/HR Morphine Sulfate (morPHINE 4MG SYG) 4 mg Q3H PRN IV SEVERE PAIN (7-10) 07/24/24 11:00 07/31/24 10:59 07/26/24 21:20 4 MG Ondansetron HCl (zoFRAN 4MG INJ) 4 mg Q4H PRN IVP NAUSEA 07/24/24 11:00 08/23/24 10:59 07/27/24 03:59 4 MG Piperacillin Sod/ Tazobactam Sod (Zosyn 3.375gm+NS 50ml) 3.375 gm Q8H IV 07/25/24 23:00 07/26/24 11:15 DC 07/26/24 07:22 3.375 GM Potassium Chloride/Dextrose/ Sod Cl 1,000 ml @ 75 mls/hr [id number] IV 07/24/24 11:00 07/27/24 01:51 DC 07/25/24 04:04 75 MLS/HR Sodium Chloride 500 ml @ 0 mls/hr Q0M IV 07/25/24 23:00 08/24/24 22:59 07/25/24 22:59 500 MLS/HR Sodium Chloride 1,000 ml @ 125 mls/hr Q8H IV 07/25/24 23:00 08/24/24 22:59 07/27/24 06:22 125 MLS/HR DIAGNOSTICS / RADIOLOGY: [ ] ASSESSMENT: [ hx rectal cancer s/p LAR 5 yrs ago hx large parastomal hernia s/p Aborted LAR with colostomy closure. Acute complicated cystitis Extensive laparoscopic lysis of adhesions Uncontrolled hypertension POA Constipation Electrolyte imbalance hypokalemia K 5.5 hypomagnesemia mg 1.7 POA Acute kidney injury creatinine 1.7 BUN 28 GFR 32 Leukocytosis WBC 16.4 procalcitonin 1.7 ] ATTESTATION BY PHYSICIAN I have seen and examined the patient. I reviewed the documentation, medical decision making, and treatment plan as noted by the mid-level provider above. I agree with the findings and plan of care. TALIB LOCKE MD, KATAR[employer]YNA B [employer] FIRST OFFICER Jul 27, 2024 10:21
[2024-07-27] MEDS: MEROPENEM 1 GM in 0.9%NACL 100ML 100 ML IV SCH (11:35)
[2024-07-27 11:42] VITALS: BP 136/64; PULSE 97; RESP 21; TEMP 98
--- NOTE | 2024-07-27 15:15 | NUR ---
PATIENT DISCHARGED HOME ID BAND AND IV REMOVED. DISCHARGE INSTRUCTIONS EXPLAINED AND GIVEN TO PATIENT. PATIENT VERBALIZED UNDERSTANDING. BELONGINGS PACKED AND TAKEN BY PATIENT. WHEELED DOWN TO PRIVATE CAR.
[2024-07-27] MEDS ORDERED: LISINOPRIL 5 MG TABLET PO SCH (21:00)
== END 2024-07-27 15:15 | disposition home or self-care (01) | DRG 336 ==
LOC: DAHIP 07-24 06:01 → WSH 07-24 12:12 → 3AH 07-26 14:30
PROVIDERS: ADMIT Surgery; ATTEND Surgery
PROC: 0DNW4ZZ Release Peritoneum, Percutaneous Endoscopic Approach (ICD-10-PCS; principal; 2024-07-24 08:10)
DX: K43.3 Parastomal hernia with obstruction, without gangrene (principal); N17.9 Acute kidney failure, unspecified; N30.00 Acute cystitis without hematuria; I10 Essential (primary) hypertension; K59.00 Constipation, unspecified; E87.6 Hypokalemia; E83.42 Hypomagnesemia; K66.0 Peritoneal adhesions (postprocedural) (postinfection); E78.5 Hyperlipidemia, unspecified; E66.01 Morbid (severe) obesity due to excess calories; Z93.3 Colostomy status; Z79.899 Other long term (current) drug therapy
CPT/HCPCS: 36415; 74018; 80048; 80053; 81001; 82948; 83605; 83735; 84145; 85025; 85610; 85730; 86850; 86900; 86901; 87040; 87086; 93005; A4344; A4450; G0378; J0171; J0330; J0696; J1644; J2003; J2175; J2185; J2250; J2270; J2371; J2405; J2543; J2704; J3010; J3475; J3480; J3490; J7030; J7040; J7120; P9045; A4215; A4216; A4221; A4222; A4223; A4600; A4649; A4663; A4930; A6260; C1769; J0665

== ENCOUNTER 2024-07-28 08:40 | Emergency (ER) | payer OTHER, MEDICARE ==
[~2024-07-28] VITALS: Ht 160 cm; Wt 74.8 kg
[2024-07-28 08:41] VITALS: TEMP 98.2
[2024-07-28 09:08] LABS: BASOPHILS # (AUTO) 0.07 K/uL (0.00-0.20); BASOPHILS % (AUTO) 0.5 % (0.0-5.0); EOSINOPHILS % (AUTO) 0.8 % (0.0-8.0); HEMATOCRIT 37.9 % (36-48); IMMATURE GRANULOCYTE ABSOLUTE 0.24 K/uL (0-1); LYMPHOCYTES # (AUTO) 0.6 K/uL (1.0-4.8); LYMPHOCYTES % (AUTO) 4.3 % (21.0-51.0); MEAN CORPUSCULAR HEMOGLOBIN 29.6 pg (27.0-33.0); MEAN CORPUSCULAR HGB CONC 32.7 g/dL (32.0-36.0); MEAN CORPUSCULAR VOLUME 90.5 fL (79-99); MONOCYTES # (AUTO) 0.9 K/uL (0.1-1.0); MONOCYTES % (AUTO) 6.7 % (3.0-13.0); NEUTROPHILS # (AUTO) 11.4 K/uL (1.8-7.7); NEUTROPHILS % (AUTO) 85.9 % (40.0-77.0); NUCLEATED RED BLOOD CELLS 0.2 % (0.0-0.19); PLATELET COUNT (AUTO) 196 K/uL (130-400); RED BLOOD CELL COUNT(AUTO) 4.19 MIL/uL (4.00-5.50); RED CELL DISTRIBUTION WIDTH 14.9 % (11.0-15.5); WHITE BLOOD COUNT (AUTO) 13.3 K/uL (4.8-10.8)
--- NOTE | 2024-07-28 09:12 | HMCIMG ---
PORTABLE CHEST RADIOGRAPH INDICATION: CHEST PAIN COMPARISON: None FINDINGS: Heart size is normal. The pulmonary vascularity and arnulfo appear normal. Minimal bibasilar linear opacities, without consolidation. No significant pleural effusion noted. No pneumothorax detected. Free air under the right hemidiaphragm. IMPRESSION: Free air under the right hemidiaphragm. Did this patient have recent surgery? Minimal bibasilar atelectasis.
[2024-07-28 09:18] LABS: CREATININE 0.9 mg/dL (0.5-1.0); POTASSIUM 3.9 mmol/L (3.5-5.1)
[2024-07-28 09:42] LABS: B-TYPE NATRIURETIC PEPTIDE 46 pg/mL (0-100)
--- NOTE | 2024-07-28 10:06 | ERN ---
General Chief Complaint: Chest Pain Stated Complaint: CHEST PAIN Time Seen by MD: 08:41 Source: patient History of Present Illness Initial Comments Patient is a 69-year-old female coming in to be evaluated for chest discomfort. Patient states that the chest discomfort began earlier today. Patient was recently discharged from the hospital and states she was being evaluated for a possible colostomy reversal. Allergies: Coded Allergies: No Known Drug Allergies (Verified Allergy, Unknown, 07/22/17) Home Meds Active Scripts Ibuprofen (Ibuprofen 800 mg Tab) 800 Mg Tab, 800 MG PO Q6H PRN for PAIN, #30 TAB Prov:[employer] 01/01/24 Reported Medications Lisinopril (Lisinopril) 5 Mg Tablet, 5 MG PO HS 07/19/24 [Nexium] No Conflict Check, PO AD 07/19/24 Escitalopram Oxalate (Escitalopram Oxalate) 10 Mg Tablet, 10 MG PO DAILY, TAB 07/21/17 Past Medical History Past Medical History: Diabetes-Type II, Hypertension Medical History Other: RECTAL CANCER Past Surgical History: Other Surgical History Other: COLOSTOMY Social History Social History: Negative, Lives with family Female( History) History: Not Applicable ROS Dictation CONSTITUTIONAL: No chills, no fever, no weakness, no diaphoresis, no malaise. HEAD/FACE: No signs of trauma. EENT: No eye pain, no blurred vision, no tearing, no double vision, no ear pain, no ear discharge, no nose pain, no nasal congestion, no throat pain, no throat swelling, no mouth pain. RESPIRATORY: No cough, no orthopnea, no SOB, no stridor, no wheezing. CARDIOVASCULAR: No chest pain, no edema, no palpitations, no syncope. GASTROINTESTINAL/ABDOMINAL: No abdominal pain, no constipation, no diarrhea, no nausea, no vomiting. GENITOURINARY: No abnormal discharge, no dysuria, no frequent urination, no hematuria. No complaints of pain in the genitals. MUSCULOSKELETAL: No back pain, no gout, no joint pain, no joint swelling, no muscle pain, no muscle stiffness, no neck pain. INTEGUMENTARY: No change in color, no change in hair/nails, no dryness, no lesion, no lumps, no rash. NEUROLOGICAL/PSYCH: No anxiety, not depressed, no emotional problem, no headache, no numbness, no pre-existing deficit, no history of seizures, no tremors, no weakness. HEMATOLOGIC/LYMPHATIC: Not anemic, no history of blood clots, no apparent bleeding, no bruising, glands not swollen. All Systems Negative, Except as Noted. Physical Exam Physical Exam Dictation VITAL SIGNS: Reviewed. GENERAL APPEARANCE: Alert, oriented x3, no acute distress, obese. HEAD AND FACE: Non-traumatic. EYES: PERRL, pink conjunctivas, eyelid no trauma, anterior chamber clear. EARS: Pinnas intact and no signs of trauma or erythema. Ear canals clear and no discharge. TMs no erythema. NOSE: No discharge, no bleeding. OROPHARYNX: Mouth normal, teeth no caries, tongue pink. Pharynx clear, no eryt pedro. Tonsils no exudates, no abscesses noted. Mucous membrane moist. NECK: Supple, non-tender, no thyromegaly, no masses, no JVD, no bruits. BREAST: Deferred. CHEST: tenderness, no crepitus, no paradoxical movement, no retractions. LUNGS: Clear, well-ventilated, symmetric, no rales, no wheezing, no rhonchi, no stridor, good breath sounds bilaterally. HEART: Regular rate, regular rhythm, no murmur, no gallops. VASCULAR: No peripheral edema. ABDOMEN: Soft, positive bowel sounds, nondistended, no guarding, nontender, no rebound, no masses no hepatomegaly, no splenomegaly, no Saunders's sign, no hernias. RECTAL: Deferred. GENITAL: Deferred. NEUROLOGICAL: Normal speech, gross motor function intact, gross sensory function intact. MUSCULOSKELETAL: Neck nontender, full range of motion, back nontender, full range of motion. EXTREMITIES: Nontender, full range of motion. SKIN: Color pink, dry, no turgor, no rash, no lacerations, no abrasions, no contusions. LYMPHATICS: Deferred. Results Laboratory and Microbiology Lab and Micro Result Laboratory Tests Test 07/28/24 08:56 07/28/24 10:00 07/28/24 11:16 White Blood Count 13.3 K/uL (4.8-10.8) H Red Blood Count 4.19 MIL/uL (4.00-5.50) Hemoglobin 12.4 g/dL (12.0-16.0) Hematocrit 37.9 % (36-48) Mean Corpuscular Volume 90.5 fL (79-99) Mean Corpuscular Hemoglobin 29.6 pg (27.0-33.0) Mean Corpuscular Hemoglobin Concent 32.7 g/dL (32.0-36.0) Red Cell Distribution Width 14.9 % (11.0-15.5) Platelet Count 196 K/uL (130-400) Mean Platelet Volume 10.3 fL (7.5-10.5) Immature Granulocyte % (Auto) 1.8 % (0-1) H Neutrophils (%) (Auto) 85.9 % (40.0-77.0) H Lymphocytes (%) (Auto) 4.3 % (21.0-51.0) L Monocytes (%) (Auto) 6.7 % (3.0-13.0) Eosinophils (%) (Auto) 0.8 % (0.0-8.0) Basophils (%) (Auto) 0.5 % (0.0-5.0) Neutrophils # (Auto) 11.4 K/uL (1.8-7.7) H Lymphocytes # (Auto) 0.6 K/uL (1.0-4.8) L Monocytes # (Auto) 0.9 K/uL (0.1-1.0) Eosinophils # (Auto) 0.10 K/uL (0.00-0.70) Basophils # (Auto) 0.07 K/uL (0.00-0.20) Absolute Immature Granulocyte (auto 0.24 K/uL (0-1) Nucleated Red Blood Cells 0.2 % (0.0-0.19) H Sodium Level 138 mmol/L (136-145) Potassium Level 3.9 mmol/L (3.5-5.1) Chloride Level 101 mmol/L (101-111) Carbon Dioxide Level 32 mmol/L (21-32) Blood Urea Nitrogen 33 mg/dL (7-18) H Creatinine 0.9 mg/dL (0.5-1.0) Glomerular Filtration Rate Calc 70 mL/min (>90) Random Glucose 112 mg/dL (70-105) H Total Calcium 8.5 mg/dL (8.5-10.1) Total Creatine Kinase 70 U/L (21-232) # B-Type Natriuretic Peptide 46 pg/mL (0-100) Serum Alcohol < 3 mg/dL (0-10) Troponin I < 0.05 ng/mL (0.00-0.05) Troponin I High Sensitivity 5 ng/L (4-50) Labs Reviewed?: Yes EKG/XRAY/US/CT/MRI EKG Comment 07/28/2024 time 8:41 a.m. Ventricular rate 94 Sinus rhythm [place] [address] wave elevation or depression X-RAY Comment [facility] [address] [place] [address] IMAGING REPORT Signed PATIENT: JENAE ROSAS MR#: [id number] : 1955 SEX: F AGE: 69 LOCATION: [facility] ORDER 1 STATUS: [facility] ER REPORT#: [id number] SERVICE 9 REASON: CHEST PAIN ORDERING PHYSICIAN: BECCA BRADY MD PROCEDURE: CXR1VW - CHEST 1VW PORTABLE CHEST RADIOGRAPH INDICATION: CHEST PAIN COMPARISON: None FINDINGS: Heart size is normal. The pulmonary vascularity and arnulfo appear normal. Minimal bibasilar linear opacities, without consolidation. No significant pleural effusion noted. No pneumothorax detected. Free air under the right hemidiaphragm. IMPRESSION: Free air under the right hemidiaphragm. Did this patient have recent surgery? Minimal bibasilar atelectasis. DICTATED BY: MYRIAM FRAGA MD DATE: 07/28/24909 ELECTRONICALLY SIGNED BY: MYRIAM FRAGA MD DATE: 07/28/24911 [facility] MDM: Differential diagnosis: Chronic pain, GERD, Patient is a 69-year-old female coming in to be evaluated for chronic pain. Patient states that she has got abdominal discomfort left shoulder pain right knee pain and epigastric discomfort. Laboratory workup negative for acute findings. I advised her appropriate follow up with the PCP for long-term management of chronic pain. Patient will be discharged in stable condition with a diagnosis of chronic pain and GERD. ED Course Orders Procedure Category Date Status Time Vital Signs Per CPOE 07/28/24 Transmitted Routine 08:40 B-Type Natriuretic LAB 07/28/24 Complete Peptide 08:40 Chest 1vw RAD 07/28/24 Resulted 08:40 12 Lead Ekg Tracing- EKG 07/28/24 Logged Technical 08:40 Oxygen By Nc/Pulse Ox CPOE 07/28/24 Transmitted 08:40 Maintain Iv CPOE 07/28/24 Transmitted 08:40 Iv Insertion CPOE 07/28/24 Transmitted 08:40 Cardiac Monitoring CPOE 07/28/24 Transmitted 08:40 Pulse Oximetry With CPOE 07/28/24 Transmitted Vs And Prn 08:40 Cbc With Differential LAB 07/28/24 Complete 08:40 Activity: Br W/Brp CPOE 07/28/24 Transmitted With Assist 08:40 Creatine Kinase, Total LAB 07/28/24 Complete 08:40 Urinalysis Profile LAB 07/28/24 Logged 08:40 Troponin Poc Order LAB 07/28/24 Complete Only 08:40 Bedside Troponin-I LAB.ER 07/28/24 In Process (Poc) 08:40 Basic Metabolic Panel LAB 07/28/24 Complete 08:40 Acetaminophen 325 Tab PHA 07/28/24 Complete (Tylenol 325mg Tab 10:00 Drug Screen Urine LAB 07/28/24 Logged 10:07 Alcohol, Blood LAB 07/28/24 Complete 10:07 Ketorolac PHA 07/28/24 Complete Tromethamine 30mg/Ml 11:00 Troponin I High LAB 07/28/24 Complete Sensitivity 11:10 Lidocaine Hcl 2% PHA 07/28/24 Complete Viscous (Lidocaine Hcl 11:30 Mag/Alum/Simeth 30ml PHA 07/28/24 Complete (Maalox Plus 30ml) 11:30 Current Medications Medications (Trade) Dose Ordered Sig/Anastasia Route PRN Reason Start Time Stop Time Status Last Admin Dose Admin Acetaminophen (TYLenol 325MG TAB) 650 mg ONCE ONCE PO 07/28/24 10:00 07/28/24 10:01 DC 07/28/24 10:07 Al Hydroxide/Mg Hydroxide (MAALox PLUS 30ML) 30 ml ONCE ONCE PO 07/28/24 11:30 07/28/24 11:31 DC 07/28/24 11:19 Ketorolac Tromethamine (toRADol) 30 mg ONCE ONCE IM 07/28/24 11:00 07/28/24 11:01 DC 07/28/24 10:48 Lidocaine HCl (Lidocaine HCl 2% Viscous) 10 ml ONCE ONCE PO 07/28/24 11:30 07/28/24 11:31 DC 07/28/24 11:19 Vital Signs Date Time Temp Pulse Resp B/P (MAP) Pulse Ox O2 Delivery O2 Flow Rate FiO2 07/28/24 11:03 86 17 148/67 96 Room Air* 0 21 07/28/24 09:30 84 17 162/144 98 Room Air* 0 21 07/28/24 08:41 98.2 92 18 150/75 98 Room Air 0 DX & DISP Disposition: Discharge Departure Impression: Primary Impression: Chronic pain Condition: Stable Additional Instructions: You have been reviewed in the emergency department at [facility] after presenting with chest pain. After considering your history, your risk factors, your EKG and your blood test troponins, have been found to be at very low risk less than (1 in 100) of having a major adverse cardiac event (like heart attack) in the near future. In the " low risk" group, the risks of doing further tests and treatment as the inpatient outweighs the benefits. In many patients in the low risk group for the test of any sort or unnecessary, however he should discuss this further with his general practitioner who will understand the medical and personal backgrounds better. Because we have never declared you" no risk" we would suggest. 1 returning for medical review if you have further episodes of chest pain/arm pain or other concerning symptoms like dizziness, collapse, palpitations or shortness of breath. 2. Following up with your local doctor who will consider the need for further testing and will also ensure that any modifiable risk factors you may have for heart disease are optimally managed. Patient will be discharged in stable condition at the moment discharge patient states , no chest pain Referrals: SUSSY RODGERS MD (PCP) Time of Disposition: 11:54 BECCA BRADY MD Jul 28, 2024 10:06
[2024-07-28] MEDS: acetaMINOPHEN 325 MG TAB PO ONE (10:07)
[2024-07-28] MEDS: ketOROlac 30MG VIAL (30MG/ML) IM ONE (10:48)
[2024-07-28 11:03] VITALS: BP 148/67; PULSE 86; RESP 17; O2SAT 96
[2024-07-28] MEDS: LIDOCAINE HCL 2% VISCOUS 15 ML UDCUP PO ONE (11:19)
[2024-07-28] MEDS: MAG/ALUM/SIMETH 30 ML UDCUP PO ONE (11:19)
[2024-07-28 11:21] LABS: APPEARANCE,URINE CLEAR (CLEAR); BILIRUBIN,URINE MODERATE mg/dL (NEGATIVE); COLOR,URINE YELLOW (YELLOW); GLUCOSE, URINE (UA) 100 mg/dL (NEGATIVE); KETONES,URINE 15 mg/dL (NEGATIVE); LEUKOCYTE ESTERASE ,URINE NEGATIVE Leu/uL (NEGATIVE); NITRATE,URINE NEGATIVE (NEGATIVE); OCCULT BLOOD,URINE NEGATIVE (NEGATIVE); PH,URINE 6.5 (5.0-8.0); PROTEIN,URINE 30 mg/dL (NEGATIVE); UROBILINOGEN,URINE 0.2 mg/dL (0.2-1.0)
[2024-07-28 11:51] LABS: ADD UA MICROSCOPIC YES
[2024-07-28 12:46] LABS: RBC,URINE None Seen /HPF (0-1)
[2024-07-28 12:47] LABS: BACTERIA,URINE Moderate /HPF (None Seen); WBC,URINE 0-1 /HPF (0-1)
--- NOTE | 2024-07-29 18:02 | EKG ---
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
== END 2024-07-28 12:05 | disposition home or self-care (01) ==
LOC: EDH 08:40
DX: G89.29 Other chronic pain (principal); R07.89 Other chest pain; E11.9 Type 2 diabetes mellitus without complications; I10 Essential (primary) hypertension; Z79.899 Other long term (current) drug therapy; Z85.048 Personal history of other malignant neoplasm of rectum, rectosigmoid junction, and anus
CPT/HCPCS: 99285; 71045; 82550; 84484 ×2; 80048; 83880; 85025; 81001; 36415; 96372; 93005; J1885